=== PATIENT | female | born 1945 | race Caucasian/White ===

== ENCOUNTER 2025-02-24 21:44 | Observation (INO) | payer MEDICARE, SELFPAY ==
[2025-02-24 21:45] VITALS: BP 118/60; PULSE 75; RESP 16; TEMP 36.4; O2SAT 93; BMI 27.5
[2025-02-24 21:51] VITALS: BP 122/60; PULSE 71; RESP 21; TEMP 36.4; O2SAT 93
--- NOTE | 2025-02-24 22:20 | EKG12_ITS ---
Test Reason : DYSRHYTHMIA Blood Pressure : */* mmHG Vent. Rate : 64 BPM Atrial Rate : 64 BPM P-R Int : 214 ms QRS Dur : 110 ms QT Int : 432 ms P-R-T Axes : 42 -43 1 degrees QTcB Int : 445 ms Sinus rhythm with 1st degree A-V block Left axis deviation Moderate voltage criteria for LVH, may be normal variant ( R in aVL , Joshua product ) Septal infarct , age undetermined Abnormal ECG Confirmed by BALTAZAR COLLINS, LV ([id number]), editorial writer TERRY HEARD ([id number]) on 02/28/2025 6:32:13 AM Referred By: Confirmed By: LV LEDESMA MD
[2025-02-24 22:36] LABS: Hematocrit 34.2 % (37-47); Hemoglobin 11.4 g/dL (12.0-15.0); Immature Granulocytes Count 0.020 X10^3/uL (0.0-0.0); Mean Corp Hgb Conc 33.3 g/dL (32-36); Mean Corpuscular Volume 95.0 fL (81-99); Mean Platelet Vol. 9.2 fl (6.2-12.0); NRBC Flagged by Analyzer 0 % (0-5); Platelet Count 266 K/mm3 (150-450); RBC Distribution Width CV 13.6 % (11.6-14.6); RBC Distribution Width SD 47.2 fl (35.1-43.9); Red Blood Count 3.60 M/mm3 (4.2-5.4); White Blood Count 6.7 K/mm3 (4.4-11.0)
[2025-02-24 23:08] LABS: Anion Gap 10 (5-15); BUN 23 mg/dL (4-19); BUN/Creat Ratio 19.0 RATIO (10-20); Calcium,Total 9.7 mg/dL (7.6-11.0); Carbon Dioxide 24.6 mmol/L (21.0-32.0); Chloride 108 mmol/L (98-108); Estimated Creatinine Clearance 38.32 ml/min (50-250); Glucose 114 mg/dL (70-99); Potassium 4.3 mmol/L (3.3-5.1)
--- NOTE | 2025-02-24 23:19 | EDS_ITS ---
HPI History of Present Illness Chief Complaint: Weakness Narrative Narrative: Patient is a 79-year-old female presenting to the emergency department for generalized weakness. Patient has a past medical history of cervical spinal fusion and fairly recent diagnosis of a Parkinson-like disease that is effecting her gait and ability to walk secondary to weakness in her legs. She was at [facility] for about 7 days and they were unable to find a cause of her symptoms. Over the past few weeks she has had continued weakness in her legs with a shuffling like gait. She denies fever, chills, chest pain, SOB, abdominal pain, nausea, vomiting, diarrhea, dysuria, hematuria. Endorses chronic low back pain that is unchanged from baseline. Denies any recent falls or trauma to her head or back. Denies any numbness in her legs, saddle anesthesia, bowel or bladder incontinence or retention. States that she had an episode last night where she couldn't get out of bed to go the bathroom and urinated the bed. PFSH PFSH Medical History no medical history Home Medications ?Medication ?Instructions ?Recorded ?Last Taken ?Type duloxetine PO BID 02/24/25 Unknown Hist ory gabapentin .ROUTE QHS 02/24/25 Unknown History lorazepam .ROUTE QHS 02/24/25 Unknown History melatonin 5 mg capsule 5 mg PO QHS PRN sleep Unknown History Allergy/AdvReac Type Severity Reaction Status Date / Time No Known Allergies Allergy Verified 02/24/25 21:57 Surgical History (Updated 02/24/25 @ 22:05 by Josseline Villareal) H/O: hysterectomy S/P cervical spinal fusion Social History Smoking Status: Never smoker ROS ROS ED ROS Narrative see HPI EXAM Physical Exam Narrative Exam Narrative: Vital signs: Reviewed General: Alert and orientedx3. No acute distress. Nontoxic. HEENT: Head is normocephalic and atraumatic, sinuses nontender, pupils equal round and reactive. Nares are patent. Oropharynx and throat exams normal. Neck: Supple without lymphadenopathy nontender Cardiovascular: Regular rate and rhythm, no murmurs. No rubs or gallops. Normal S1 and S2 Respiratory: Clear to auscultation bilaterally. No wheezes, rales, rhonchi Abdominal: Soft and nontender. Normal bowel sounds. No guarding or rebound. Nonsurgical abdomen Extremities: 4/5 strength in right lower extremity. 3/5 strength in left lower extremity. Sensation intact in bilateral lower extremities. No tenderness. No bruising. Normal strength and sensation in bilateral upper extremities. Skin: No rash or redness. Neurological: Cranial nerves II through XII are grossly intact. Normal cerebellar function The rest of the physical exam is unremarkable Const Vital Signs: 02/24/25 21:45 02/24/25 21:51 02/24/25 21:59 Temperature 97.5 F L 97.5 F L Temperature Source Oral Oral Pulse Rate 75 71 Respiratory Rate 16 21 H Respiratory Effort Normal Respiratory Pattern Normal Blood Pressure 118/60 122/60 H Blood Pressure Mean 79 80 Pulse Ox 93 93 Oxygen Delivery Method Room Air Room Air 02/24/25 23:45 02/25/25 00:14 Temperature 98.4 F Temperature Source Temporal Pulse Rate 56 L 56 L Respiratory Rate 12 12 Respiratory Effort Respiratory Pattern Blood Pressure 130/68 H 130/68 H Blood Pressure Mean 88 88 Pulse Ox 96 9 Oxygen Delivery Method Room Air Room Air MDM MDM MDM Narrative Medical decision making narrative: Patient is a 79-year-old female presenting to the emergency department for generalized weakness and inability to walk with assistance at home. Patient was seen and examined. Vitals are stable. Patient resting in bed comfortably no acute distress. I explained to the at bedside this may be a progression of the Parkinson's-like disease. states that he is the sole software developer manager of the patient and he is unable to care for her if she is unable to ambulate. However will obtain basic blood work, chest x-ray, urinalysis to evaluate for any underlying electrolyte imbalance, pneumonia or UTI that is causing her worsening weakness. She has had no recent head trauma or falls I do not think she needs a CT of her brain. She had no new back pain and no midline tenderness on exam and no red flag back pain signs that were would require an MRI of her spine. CBC with no leukocytosis and anemia of 11.4. No baseline to compare to. BMP with mild BOO, again no baseline to compare to. Fluid bolus started. Urinalysis with no evidence of UTI. CXR reviewed by myself and shows no acute radiographic abnormalities. Radiology read in agreement. Viral swab negative. When I went to update the patient and is not at bedside. Patient will require admission for likely placement in a facility given 's inability to care for her at home given her worsening status. Patient will be admitted to the hospitalist, Dr. Muniz for further management. Clinical impression Failure to thrive Weakness History & Record Review Discussion w/independent historian: Patient and Significant other Lab Data Attestation: I reviewed the patient's lab results. Labs: Laboratory Results - last 24 hr 02/24/25 02/25/25 22:00 00:05 WBC 6.7 RBC 3.60 L Hgb 11.4 L Hct 34.2 L MCV 95.0 MCH 31.7 MCHC 33.3 RDW Std Deviation 47.2 H RDW Coeff of Dat 13.6 Plt Count 266 MPV 9.2 Immature Gran % (Auto) 0.300 Neut % (Auto) 64.3 Lymph % (Auto) 22.9 [place] % (Auto) 9.1 Eos % (Auto) 2.8 Baso % (Auto) 0.6 Absolute Neuts (auto) 4.3 Absolute Lymphs (auto) 1.54 Nucleated RBC % 0 Sodium 143 Potassium 4.3 Chloride 108 Carbon Dioxide 24.6 Anion Gap 10 BUN 23 H Creatinine 1.23 H Estim Creat Clear Calc 38.32 L Est GFR (MDRD) Non-Af 44 L BUN/Creatinine Ratio 19.0 Glucose 114 H Calcium 9.7 Urine Color Yellow Urine Clarity Clear Urine pH 6.0 Ur Specific [place] 1.020 Urine Protein 15 H Urine Glucose (UA) Normal Urine Ketones Negative Urine Occult Blood Negative Urine Nitrite Negative Urine Bilirubin Negative Urine Urobilinogen Normal Ur Leukocyte Esterase 25 H Radiography Chest X-Ray - ED: 2 View, Read by ED Physician, Normal, No Acute Disease and No Infiltrates Diagnostic Testing: Clinical Impression(s) from Imaging Studies Chest X-Ray 02/24/25 23:20 IMPRESSION: NO ACUTE FINDINGS. Reading Location: [facility][NOTE 3] Discharge Plan Triage Chief Complaint: Weakness ED Provider: Fina Wise Dx/Rx/DC Orders Prescriptions: No Action gabapentin .ROUTE QHS melatonin 5 mg capsule 5 mg PO QHS PRN (Reason: sleep) lorazepam .ROUTE QHS duloxetine PO BID Print Language: Portuguese
--- NOTE | 2025-02-24 23:20 | RAD_ITS ---
PROCEDURE: CHEST PA AND LATERAL 02/24/2025 REASON FOR EXAM: GENERALIZED WEAKNESS TECHNIQUE: Procedure Code: RADCXR Modality: DX Procedure: CHEST PA AND LATERAL COMPARISON: None. FINDINGS: LUNGS AND PLEURA: No focal airspace consolidation. No pleural effusion or pneumothorax. HEART AND MEDIASTINUM: The cardiac silhouette is mildly enlarged. The mediastinal contour is normal. BONES: No acute osseous abnormality. Partially imaged cervicothoracic spinal fusion hardware. RAD/Chest PA and Lateral IMPRESSION: NO ACUTE FINDINGS. Reading Location: [id number]
[2025-02-24 23:45] VITALS: BP 130/68; PULSE 56; RESP 12; O2SAT 96
[2025-02-25] VITALS (12 sets, daily range): BP systolic 130–159; BP diastolic 55–78; PULSE 54–79; RESP 11–18; TEMP 36.5–36.9; O2SAT 9–99; BMI 26.3
[2025-02-25] MEDS: 0.9% Normal Saline (1000mL) 1,000 ML 1000 ML IV (00:12)
[2025-02-25 00:35] LABS: Mucous, Urine 0 SEEN /hpf (<or=2+); Red Blood Cells-Urine 0 SEEN /hpf (0-5); Squamous Epithelial Cells - UA 0 SEEN /hpf (5-10)
[2025-02-25 00:40] LABS: Color, Urine Yellow (Yellow); Glucose, Dipstick Normal (Normal); Ketone-Dipstick Negative (Negative); Leukocyte Esterase-Dipstick 25 /ul (Negative); Nitrite-Dipstick Negative (Negative); Occult Blood-Urine Negative /ul (Negative); Protein-Dipstick 15 mg/dl (Negative); Specific Gravity, Urine 1.020 (1.002-1.030); Urine Bilirubin Dipstick Negative (Negative)
--- NOTE | 2025-02-25 01:08 | HP.PCM.HOS_ITS ---
HPI - General General Date of Admission: 02/25/25 Date of Service: 02/25/25 Chief Complaint: Debility, BL LE weakness. HPI Narrative The patient is an 79 y/o F w/ PMHx: RLS, Possible chronic normocytic anemia, Possible CKD stage III per GFR trending, HTN, Suspected Parkinson's disease, Anxiety and Depression/mood disorder, Chronic neuropathy, Possible Parkinson's disease who presents to [facility] ED on 02/25/2025 with history of generalized weakness with recent diagnosis of Parkinson's-like disease affecting her gait and ability to walk with significant worsening debility and weakness recently at [facility] reportedly for about 7 days unable to find any specific cause other than concern for Parkinson's disease discharged home eventually and over the past several weeks she has continued to be more weak with a shuffling like gait with unchanged chronic stable back pain contributing with no recent falls or trauma or worsened neuropathy but given debility and weakness prompted patient to present to the ED for skilled placement. Workup in the ED included T97.5, heart 75, BP 118/60, respiratory rate 16, 93% on room air with most recent repeat vitals T98.2, heart rate 60, BP 147/55, respiratory rate 12, 96% room air, CBC with WC 6.7, hemoglobin 0.4, MCV 95, platelet 266 without marked shift, BMP with BUN/creatinine 23/1.23, GFR 44, glucose 114, urinalysis not marked appearing, chest x-ray with no acute cardiopulmonary findings, rapid SARS COVID/influenza/RSV PCR negative. In the ED patient ministered 1 L normal saline. [facility] Medical History Parkinson disease Neuropathy HTN (hypertension) Anxiety and depression RLS (restless legs syndrome) Normocytic anemia Chronic kidney disease (CKD), stage 3 Medical History no medical history Home Medications ?Medication ?Instructions ?Recorded ?Last Taken ?Type duloxetine PO BID 02/24/25 Unknown Hist ory gabapentin .ROUTE QHS 02/24/25 Unknown History lorazepam .ROUTE QHS 02/24/25 Unknown History melatonin 5 mg capsule 5 mg PO QHS PRN sleep Unknown History Allergy/AdvReac Type Severity Reaction Status Date / Time No Known Allergies Allergy Verified 02/24/25 21:57 Family History Mother Heart disease Father , MVA No problems noted. Surgical History History of bladder surgery H/O: hysterectomy S/P cervical spinal fusion Social History household members: spouse Smoking Status: Never smoker alcohol intake: never substance use type: does not use ROS ROS Narrative Admission Review of Systems: CONSTITUTIONAL: No weight loss, fever, chills, + weakness or fatigue. HEENT: Eyes: No visual loss, blurred vision, double vision or yellow sclerae. Ears, Nose, Throat: No hearing loss, sneezing, congestion, runny nose or sore throat. SKIN: No rash or itching, lesions, wounds except + occasional stage ecchymoses, abrasion. CARDIOVASCULAR: No chest pain, chest pressure or chest discomfort, palpitations, edema, orthopnea, syncopal events. RESPIRATORY: No shortness of breath, cough or sputum, wheezing, hemoptysis. GASTROINTESTINAL: No anorexia, nausea, vomiting or diarrhea, abdominal pain, melena, BRBPR. GENITOURINARY: No dysuria, frequency, urgency or retention. NEUROLOGICAL: + General debility, lower extremity weakness, shuffling gait. No headache, dizziness, syncope, paralysis, ataxia, numbness or tingling in the extremities, focal weakness, change in bowel or bladder control, seizure. MUSCULOSKELETAL: + muscle, back pain, joint pain or stiffness. HEMATOLOGIC: + Chronic anemia, easy bleeding/bruising. LYMPHATICS: No enlarged nodes. No history of splenectomy. PSYCHIATRIC: + History of anxiety depression/mood disorder. ENDOCRINOLOGIC: No reports of sweating, cold or heat intolerance. No polyuria or polydipsia. ALLERGIES: No history of asthma, hives, eczema or rhinitis. Vital Signs Vital Signs Vital Signs: 02/24/25 21:45 02/24/25 21:51 02/24/25 21:59 Temperature 97.5 F L 97.5 F L Temperature Source Oral Oral Pulse Rate 75 71 Respiratory Rate 16 21 H Respiratory Effort Normal Respiratory Pattern Normal Blood Pressure 118/60 122/60 H Blood Pressure Mean 79 80 Pulse Ox 93 93 Oxygen Delivery Method Room Air Room Air 02/24/25 23:45 02/25/25 00:13 02/25/25 00:14 Temperature 98.4 F Temperature Source Temporal Pulse Rate 56 L 54 L 56 L Respiratory Rate 12 12 12 Respiratory Effort Respiratory Pattern Blood Pressure 130/68 H 130/68 H Blood Pressure Mean 88 88 Pulse Ox 96 96 9 Oxygen Delivery Method Room Air Room Air 02/25/25 00:15 02/25/25 00:30 02/25/25 00:45 Temperature Temperature Source Pulse Rate 54 L 64 64 Respiratory Rate 11 L 14 11 L Respiratory Effort Respiratory Pattern Blood Pressure 134/55 H 131/78 H 147/55 H Blood Pressure Mean 79 88 81 Pulse Ox 96 96 95 Oxygen Delivery Method 02/25/25 00:52 02/25/25 01:00 02/25/25 01:00 Temperature 98.2 F 97.9 F Temperature Source Temporal Pulse Rate 60 68 59 L Respiratory Rate 12 13 12 Respiratory Effort Respiratory Pattern Blood Pressure 147/55 H 147/55 H 139/68 H Blood Pressure Mean 85 85 85 Pulse Ox 96 96 97 Oxygen Delivery Method Room Air Weight Weight: 170 lb 10.205 oz Body Mass Index (BMI) 27.5 Physical Exam Narrative Physical Examination: General: Awakens to stimuli but very fatigued, not markedly alert, oriented to self, very fatigued, difficult to arouse, cooperative, seated upright in the ED bed in no apparent distress. Skin: Normal color, normal turgor, no icterus, no cyanosis except occasional staged ecchymoses, abrasion. HEENT: AT/NC, EOMI, PERRLA, mildly dry MM, no carotid bruits or JVD noted. Lungs: Diminished, greater bases, appropriate effort, no rales, ronchi or wheezing. Heart: Regular rate and rhythm; no gallop, rub audible. Abdomen: Soft, NTTP, ND, mildly hyperactive BS, no markedly appreciated HSM. Extremities: No cyanosis, no clubbing, no significant distal edema. Neurological: Awakens to stimuli but very fatigued, not markedly alert, oriented to self, very fatigued, difficult to arouse, cooperative, seated upright in the ED bed in no apparent distress, pupils equally reactive to light and accommodation, cranial nerves grossly normal but difficult assessment is very lethargic and fatigued, moving all 4 extremities, no focal deficits, strength severely globally decreased. Psychiatric: Affect appears flat, lethargic, fatigued, no acute evidence of depressive or anxiety feelings but does have underlying history. Results Lab / Micro Data 02/24/25 22:00 02/24/25 22:00 Labs: Laboratory Results - last 24 hr 02/24/25 22:00: WBC 6.7, RBC 3.60 L, Hgb 11.4 L, Hct 34.2 L, MCV 95.0, MCH 31.7, MCHC 33.3, RDW Std Deviation 47.2 H, RDW Coeff of Dat 13.6, Plt Count 266, MPV 9.2, Immature Gran % (Auto) 0.300, Neut % (Auto) 64.3, Lymph % (Auto) 22.9, [place] % (Auto) 9.1, Eos % (Auto) 2.8, Baso % (Auto) 0.6, Absolute Neuts (auto) 4.3, Absolute Lymphs (auto) 1.54, Nucleated RBC % 0, Sodium 143, Potassium 4.3, Chloride 108, Carbon Dioxide 24.6, Anion Gap 10, BUN 23 H, Creatinine 1.23 H, E stim Creat Clear Calc 38.32 L, Est GFR (MDRD) Non-Af 44 L, BUN/Creatinine Ratio 19.0, Glucose 114 H, Calcium 9.7 02/25/25 00:05: Urine Color Yellow, Urine Clarity Clear, Urine pH 6.0, Ur Specific [place] 1.020, Urine Protein 15 H, Urine Glucose (UA) Normal, Urine Ketones Negative, Urine Occult Blood Negative, Urine Nitrite Negative, Urine Bilirubin Negative, Urine Urobilinogen Normal, Ur Leukocyte Esterase 25 H, Urine RBC 0 SEEN, Urine WBC 0 SEEN, Ur Squamous Epith Cells 0 SEEN, Urine Bacteria 0 SEEN, Urine Mucus 0 SEEN Micro: Microbiology 02/24/25 22:30 Mucosa - Nose SARS-CoV-2, Influenza & RSV (PCR) - Final Imaging Radiology Impression Chest X-Ray 02/24/25 23:20 IMPRESSION: NO ACUTE FINDINGS. Reading Location: [facility] Assessment & Plan Assessment/Plan (1) Adult failure to thrive: PLAN: Plan The patient is an 79 y/o F w/ PMHx: RLS, Possible chronic normocytic anemia, Possible CKD stage III per GFR trending, HTN, Suspected Parkinson's disease, Anxiety and Depression/mood disorder, Chronic neuropathy, Possible Parkinson's disease who presents to [facility] ED on 02/25/2025 with history of generalized weakness with recent diagnosis of Parkinson's-like disease affecting her gait and ability to walk with significant worsening debility and weakness recently at [facility] reportedly for about 7 days unable to find any specific cause other than concern for Parkinson's disease discharged home eventually and over the past several weeks she has continued to be more weak with a shuffling like gait with unchanged chronic stable back pain contributing with no recent falls or trauma or worsened neuropathy but given debility and weakness prompted patient to present to the ED for skilled placement. #1. Debility, Weakness, recent concern Parkinson-like disease with worsening debility, Adult FTT: Will admit to [facility], maintain on fall precautions, from patient reportedly she was tried on Sinemet regimen but worsened significantly therefore this was discontinued, at this point patient is unable to be safely cared for at home with her spouse therefore will request PT/OT/case management consultation for discharge planning for skilled facility placement, has recently had a thorough evaluation at tertiary facility thus will defer any repeat evaluation at this time. #2. Possible Parkinson-like disease: Previous records with treatment with Sinemet regimen but these apparently worsened the patient symptoms, complicates presentation, maintain on fall precautions, PT/OT/CM consulted for discharge planning. Records requested from [facility]. #3. Hypertension: From previous records it appears that patient had been on losartan 25 mg once daily, filled does not appear to been performed recently that is clarified to be certain, will add if ongoing medication, PRN hydralazine. #4. Possible Chronic normocytic anemia: Admission hemoglobin 11.4, MCV 95, baseline hemoglobin unknown as no comparison labs, will repeat CBC in a.m. to further elucidate. #5. Possible Chronic Kidney Disease Stage III per GFR: Admission BUN/Cr 23/1.23, GFR 44, baseline renal function unknown, to further elucidate repeat BMP in AM. #6. Anxiety and depression/mood disorder: Will continue patient home duloxetine and mirtazapine regimen, attempting to clarify home medications, will continue if appropriate, hold sedating regimen given generalized weakness complaint. #7. Chronic neuropathy: Will very cautiously continue patient home gabapentin regimen, monitor for sedation, hold if needed as again could be contributing to generalized weakness complaint. #8. RLS: Previously remotely had a fill for pramipexole regimen, does not currently appear to be ongoing, clarified to be certain will add if appropriate. #9. DVT prophylaxis: Lovenox. #10. CODE status: Patient HCPOA is her and living will is in place. Discussed CODE status at length including difference between FULL code, DNR-CCA and DNR-CC status. Following discussions about the differences in these status, requested DNR-CCA, no intubation. Advanced Care Planning Face to Face Time: 16 minutes. Charges/Coding Visit Charges Inpatient E&M: 63794 Init Hosp L2 Procedures Hospitalists Procedures: 65093 Advncd Care Plan 30 Min
[2025-02-25 01:34] LABS: Magnesium 2.1 mg/dL (1.5-2.2)
[2025-02-25] MEDS: 0.9% Normal Saline (1000mL) 1,000 ML 75 ML IV (03:21)
[2025-02-25] MEDS: 0.9% Saline Lock 10 ML Syringe IV (03:21)
[2025-02-25 08:22] LABS: Hematocrit 31.5 % (37-47); Hemoglobin 10.1 g/dL (12.0-15.0); Immature Granulocytes Count 0.010 X10^3/uL (0.0-0.0); Mean Corp Hgb Conc 32.1 g/dL (32-36); Mean Corpuscular Volume 96.3 fL (81-99); Mean Platelet Vol. 9.3 fl (6.2-12.0); NRBC Flagged by Analyzer 0 % (0-5); Platelet Count 242 K/mm3 (150-450); RBC Distribution Width CV 13.6 % (11.6-14.6); RBC Distribution Width SD 47.6 fl (35.1-43.9); Red Blood Count 3.27 M/mm3 (4.2-5.4); White Blood Count 4.5 K/mm3 (4.4-11.0)
[2025-02-25 09:07] LABS: AST(SGOT) 26 U/L (<=31); Alanine Aminotransfer ALT/SGPT 8 U/L (<=34); Albumin, Serum 3.4 g/dL (3.4-4.8); Alkaline Phosphatase 81 U/L (35-104); Anion Gap 8 (5-15); BUN 22 mg/dL (4-19); BUN/Creat Ratio 23.2 RATIO (10-20); Calcium,Total 9.0 mg/dL (7.6-11.0); Carbon Dioxide 23.8 mmol/L (21.0-32.0); Chloride 111 mmol/L (98-108); Estimated Creatinine Clearance 48.21 ml/min (50-250); Globulin 1.8 g/dL (2.2-4.2); Glucose 95 mg/dL (70-99); Potassium 4.0 mmol/L (3.3-5.1)
--- NOTE | 2025-02-25 13:40 | CASEMGMT ---
MALINA VILLEGAS Assessment Face to Face with patient for initial transition planning/care coordination assessment. RN BAKARI introduced self and role at [facility], pt voices understanding. Pt is A&Ox4 and is resting comfortably in bed and is calm. Pt's GD at the bedside. Care providers, pharmacy, and demographics verified. Admitting dx: Debility, Adult FTT LACE Strata: 1 PCP: Leonarda Mistry Specialists: Tobin (Nehpro), Fabby (Neurology), Jessica (Neuro) Preferred Pharmacy: [facility] Insurance: O [facility] Prescription Benefit: Yes LNOK: Allan (H) Living Arrangements: Pt lives with her in a single story home with a ramp to enter ADLs/IADLs: Pt reports that she is indep at baseline. However, current 6-Click score is 14 and PT is pending Transportation: DME: Cane, Rollator, FWW, walk in shower with shower chair and grab bars HHC/SNF: [facility] and hx at [facility] in [place]. Pt states that she is active with [facility] in [place]. Pt?s goal: Return to PLOF Plan: TBD. Anticipate SNF vs HHC vs home with [facility]. Pt states that she is unsure of what she will need or want at the time of DC. Encouraged the pt to work with PT/OT here to help determine what she will best qualify for. Pt states understanding. Pt states that she would be receptive to reviewing a list of local in-network SNFs if SNF is warranted. DPA notified. CM to follow therapy evals and f/u with the pt. Report given to MS3 MALINA VILLEGAS. Walker Canchola RN, CM
--- NOTE | 2025-02-25 16:24 | CASEMGMT ---
Discharge Planning A list of?SNF providers including quality and resource use data and consistent with the patient's preferred geographic region, medical needs, and insurance network was created in [employer] Guide.? This list was provided to the RN BAKARI. Liliya Barrow, Discharge Planning Asst.
--- NOTE | 2025-02-25 16:40 | CASEMGMT ---
MALINA VILLEGAS into pt room, pt with at bedside. Provided pt with a SNF list that dc kitchen assistant created in case pt may need. Pt is aware that MALINA VILLEGAS will f/u with her tomorrow after therapy and if she needs a SNF will request her top 3 choices. Pt states that pt cannot even walk now. He is aware they can review list and discuss and MALINA VILLEGAS to check back. Pt and deny any further questions.
[2025-02-25] MEDS: Glycerin/Hypromellose/PEG400 15 ml Bottle 1 DRP EACH EYE ×2 (17:10→21:42)
--- NOTE | 2025-02-25 17:22 | PCM.PN.BLA ---
Progress Note [facility]. Still with debility and weakness and concerns for possible Parkinson-like disease.
--- NOTE | 2025-02-26 00:03 | PCM.HOSP.N ---
Hospitalist Note Pt c/o generalized pain, requests oxy as taken at home. In considering her being encephalopathic on admission, reviewed Rx fill history. Percocet fill in October and oxy fill in August of this year, nothing recent. I ordered tramadol 50mg PO x1 now.
[2025-02-26] MEDS: MELATONIN 10 MG TABLET 5 MG PO ×2 (01:19→21:11)
[2025-02-26 02:45] VITALS: BP 145/52; PULSE 69; RESP 18; TEMP 36.6; O2SAT 94
[2025-02-26 06:00] VITALS: BMI 26.2
[2025-02-26 06:35] LABS: Hematocrit 32.4 % (37-47); Hemoglobin 10.3 g/dL (12.0-15.0); Immature Granulocytes Count 0.010 X10^3/uL (0.0-0.0); Mean Corp Hgb Conc 31.8 g/dL (32-36); Mean Corpuscular Volume 97.3 fL (81-99); Mean Platelet Vol. 9.7 fl (6.2-12.0); NRBC Flagged by Analyzer 0 % (0-5); Platelet Count 236 K/mm3 (150-450); RBC Distribution Width CV 13.6 % (11.6-14.6); RBC Distribution Width SD 48.1 fl (35.1-43.9); Red Blood Count 3.33 M/mm3 (4.2-5.4); White Blood Count 5.5 K/mm3 (4.4-11.0)
[2025-02-26 07:03] LABS: Anion Gap 9 (5-15); BUN 21 mg/dL (4-19); BUN/Creat Ratio 19.6 RATIO (10-20); Calcium,Total 8.9 mg/dL (7.6-11.0); Carbon Dioxide 22.8 mmol/L (21.0-32.0); Chloride 110 mmol/L (98-108); Estimated Creatinine Clearance 42.31 ml/min (50-250); Glucose 93 mg/dL (70-99); Potassium 4.4 mmol/L (3.3-5.1)
[2025-02-26 07:51] VITALS: O2SAT 95
--- NOTE | 2025-02-26 08:14 | PN.HOSP_ITS ---
Reason for Visit Chief Complaint: Debility, BL LE weakness. Objective Data Objective Data Vital Signs: Vital Signs Temp Pulse Resp BP Pulse Ox O2 Del Method 97.9 F 69 18 145/52 H 94 Room Air 02/26/25 02:45 02/26/25 02:45 02/26/25 02:45 02/26/25 02:45 02/26/25 02:45 02/26/25 02:45 Oxygen Delivery Method Room Air Weight: 162 lb 11.218 oz Body Mass Index (BMI) 26.2 Intake & Output: Intake and Output for Last 24 Hours 02/24/25 02/25/25 02/26/25 23:59 23:59 23:59 Intake Total 2340 / 2340 Output Total 450 / 1050 1000 / 1000 Balance 1890 / 1290 -1000 / -1000 Medical Nutrition Assessment Dietitian: Malnutrition Criteria Met Start: 02/25/25 16:22 Freq: Status: Active Protocol: Document 02/25/25 16:26 RMA (Rec: 02/25/25 16:26 RMA [id number]) Nutrition Malnutrition Evidence of Yes Malnutrition Exists Malnutrition (severe Chronic ): Evidenced By Suboptimal Energy Intake (Severe),Weight Loss (Severe) Clinical Problem Chronic Disease or Condition Related Malnutrition Etiology Severe protein-calorie malnutrition in the context of chronic disease and debility related to inadequate oral intake~ Signs/Symptoms as evidenced by PO meeting less than 50-75% estimated nutrition needs x 3-6 months and unintentional weight loss ~14% x past 3-6 months Status Active Problem Recommendation Dietitian Will liberalize diet to Regular given signs/symptoms of Recommendations/ malnutrition. Changes Will add 240mL ensure plus HP with breakfast. Will add magic cup dessert with lunch and dinner tray. Trend weight closely and adjust ONS to optimize oral intake. Lab / Micro Data 02/26/25 05:46 02/26/25 05:46 Labs: Laboratory Results - last 24 hr 02/25/25 07:42: WBC 4.5, RBC 3.27 L, Hgb 10.1 L, Hct 31.5 L, MCV 96.3, MCH 30.9, MCHC 32.1, RDW Std Deviation 47.6 H, RDW Coeff of Dat 13.6, Plt Count 242, MPV 9.3, Immature Gran % (Auto) 0.200, Neut % (Auto) 49.5, Lymph % (Auto) 35.3, [place] % (Auto) 10.4 H, Eos % (Auto) 4.2, Baso % (Auto) 0.4, Absolute Neuts (auto) 2.2, Absolute Lymphs (auto) 1.60, Nucleated RBC % 0, Sodium 142, Potassium 4.0, C hloride 111 H, Carbon Dioxide 23.8, Anion Gap 8, BUN 22 H, Creatinine 0.96, E stim Creat Clear Calc 48.21 L, Est GFR (MDRD) Non-Af 60, BUN/Creatinine Ratio 23.2 H, Glucose 95, Calcium 9.0, Total Bilirubin 0.84, AST 26, ALT 8, Alkaline Phosphatase 81, Total Protein 5.1 L, Albumin 3.4, Globulin 1.8 L, Albumin/Globulin Ratio 1.9 02/26/25 05:46: WBC 5.5, RBC 3.33 L, Hgb 10.3 L, Hct 32.4 L, MCV 97.3, MCH 30.9, MCHC 31.8 L, RDW Std Deviation 48.1 H, RDW Coeff of Dat 13.6, Plt Count 236, MPV 9.7, Immature Gran % (Auto) 0.200, Neut % (Auto) 48.5, Lymph % (Auto) 34.6, [place] % (Auto) 10.7 H, Eos % (Auto) 5.6 H, Baso % (Auto) 0.4, Absolute Neuts (auto) 2.7, Absolute Lymphs (auto) 1.90, Nucleated RBC % 0, Sodium 142, Potassium 4.4, Chloride 110 H, Carbon Dioxide 22.8, Anion Gap 9, BUN 21 H, Creatinine 1.09, E stim Creat Clear Calc 42.31 L, Est GFR (MDRD) Non-Af 51 L, BUN/Creatinine Ratio 19.6, Glucose 93, Calcium 8.9 Micro: Microbiology 02/24/25 22:30 Mucosa - Nose SARS-CoV-2, Influenza & RSV (PCR) - Final Physical Exam Narrative Seen and examined Patient admitted with movement disorder, disequilibrium, short shuffling gait and near fall situation. Her symptoms got worse with Sinemet. Physical exam General: Alert, Oriented x3, Cooperative. BMI 26.3 kg/m?. HEENT: Atraumatic, PERRLA, EOMI, Normocephalic. Oral: No Gingival or Mucosal Lesions/ Ulcerations Neck: Supple, No JVD, Negative Carotid Bruits Chest wall/Lungs: Air entry diminished in bilateral lung bases. No crepitation/rhonchi Cardiovascular: Regular rate and rhythm, Normal S1,S2, No M/G/R Abdomen: Bowel Sounds Present, Soft, Non Tender, Non-Distended : No dysuria. No renal angle tenderness. No suprapubic tenderness. Extremities: No edema, Capillary Refill Less than 3 Seconds Skin: No rashes, No breakdown Musculoskeletal: Left knee and hip 3/5, right knee and hip 4+/5. Bilateral degenerative knee arthritis. Neurological: Cranial nerves II-XII grossly intact, DTR 2+/4. No acute focal neurological deficit. Psych/Mental Status: Flat affect Assessment & Plan Assessment/Plan (1) Adult failure to thrive: PLAN: Plan The patient is an 79 y/o F is being admitted for generalized weakness with recent diagnosis of Parkinson-like disease therefore possible progression of her Parkinson disease with weakness of her legs, shuffling gait and not able to walk. #1. Debility, Weakness, recent concern Parkinson-like disease with worsening debility, Adult FTT: Patient admitted on MedSurg floor. As per , Sinemet worsened her symptoms and therefore was discontinued. PT and OT ordered. Case management consultation for skilled facility placement #2. 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 She states he saw Dr. Rdz and Dr. Andrea Lopez neurologist in the [facility]. #3. Hypertension: Patient was on losartan. #4. Possible Chronic normocytic anemia: Admission hemoglobin 11.4, MCV 95, repeat H&H 10.3/32.4%. Platelet count normal. #5. Chronic Kidney Disease stage A: Admission BUN/Cr 23/1.23, GFR 44, baseline not known. Repeat BUN/creatinine 221/1.09. #6. Anxiety and depression/mood disorder: continue patient home duloxetine and mirtazapine regimen #7. Chronic neuropathy: continue patient home gabapentin regimen #8. RLS: Was on pramipexole in the past. #9. DVT prophylaxis: Lovenox. #10. CODE status: Patient HCPOA is her and living will is in place. Discussed CODE status at length including difference between FULL code, DNR-CCA and DNR-CC status. Following discussions about the differences in these status, requested DNR-CCA, no intubation. Charges/Coding Visit Charges Inpatient E&M: 36211 Subs Hosp L2
[2025-02-26 08:33] VITALS: BP 124/54; PULSE 65; RESP 15; TEMP 36.6; O2SAT 95
[2025-02-26] MEDS: Glycerin/Hypromellose/PEG400 15 ml Bottle 1 DRP EACH EYE (08:42)
[2025-02-26 15:25] VITALS: BP 106/45; PULSE 78; RESP 16; TEMP 36.6; O2SAT 94
--- NOTE | 2025-02-26 15:42 | CASEMGMT ---
This health science writer has collaborated with therapy who states that they still have not been able to work with the pt today due to multiple evals. CM to f/u on Friday once therapy evals are in to assist with SNF DC planning.
[2025-02-26 20:06] VITALS: O2SAT 96
[2025-02-26 20:09] VITALS: BP 126/55; PULSE 70; RESP 16; TEMP 36.7; O2SAT 96
[2025-02-27] VITALS (7 sets, daily range): BP systolic 101–142; BP diastolic 47–62; PULSE 60–78; RESP 16–18; TEMP 36.4–37; O2SAT 92–95; BMI 26.2
--- NOTE | 2025-02-27 11:24 | PCM.PN.HOSP ---
Reason for Visit Chief Complaint: Debility, BL LE weakness. Objective Data Objective Data Vital Signs: Vital Signs Temp Pulse Resp BP Pulse Ox O2 Del Method 98.2 F 68 16 142/56 H 93 Room Air 02/27/25 07:35 02/27/25 07:35 02/27/25 07:35 02/27/25 07:35 02/27/25 08:05 02/27/25 08:05 Oxygen Delivery Method Room Air Weight: 162 lb 4.163 oz Body Mass Index (BMI) 26.2 Intake & Output: Intake and Output for Last 24 Hours 02/25/25 02/26/25 02/27/25 23:59 23:59 23:59 Intake Total 2340 / 2340 500 / 700 200 / 200 Output Total 450 / 1050 1500 / 1750 250 / 250 Balance 1890 / 1290 -1000 / -1050 -50 / -50 Medical Nutrition Assessment Dietitian: Malnutrition Criteria Met Start: 02/25/25 16:22 Freq: Status: Active Protocol: Document 02/25/25 16:26 RMA (Rec: 02/25/25 16:26 RMA [id number]) Nutrition Malnutrition Evidence of Yes Malnutrition Exists Malnutrition (severe Chronic ): Evidenced By Suboptimal Energy Intake (Severe),Weight Loss (Severe) Clinical Problem Chronic Disease or Condition Related Malnutrition Etiology Severe protein-calorie malnutrition in the context of chronic disease and debility related to inadequate oral intake~ Signs/Symptoms as evidenced by PO meeting less than 50-75% estimated nutrition needs x 3-6 months and unintentional weight loss ~14% x past 3-6 months Status Active Problem Recommendation Dietitian Will liberalize diet to Regular given signs/symptoms of Recommendations/ malnutrition. Changes Will add 240mL ensure plus HP with breakfast. Will add magic cup dessert with lunch and dinner tray. Trend weight closely and adjust ONS to optimize oral intake. Lab / Micro Data 02/26/25 05:46 02/26/25 05:46 Micro: Microbiology 02/24/25 22:30 Mucosa - Nose SARS-CoV-2, Influenza & RSV (PCR) - Final Physical Exam Narrative Seen and examined Patient admitted with movement disorder, disequilibrium, short shuffling gait and near fall situation. Her symptoms got worse with Sinemet. Patient denies any improvement compared to yesterday. Did not had a BM since Friday. Physical exam General: Alert, Oriented x3, Cooperative. BMI 26.3 kg/m?. Fatigue. HEENT: Atraumatic, PERRLA, EOMI, Normocephalic. Oral: No Gingival or Mucosal Lesions/ Ulcerations Neck: Supple, No JVD, Negative Carotid Bruits Chest wall/Lungs: Air entry diminished in bilateral lung bases. No crepitation/rhonchi Cardiovascular: Regular rate and rhythm, Normal S1,S2, No M/G/R Abdomen: Bowel Sounds Present, Soft, Non Tender, Non-Distended : No dysuria. No renal angle tenderness. No suprapubic tenderness. Extremities: No edema, Capillary Refill Less than 3 Seconds Skin: No rashes, No breakdown Musculoskeletal: Left knee and hip 3/5, right knee and hip 4/5. Bilateral degenerative knee arthritis. Neurological: Cranial nerves II-XII grossly intact, DTR 2+/4. No acute focal neurological deficit. Psych/Mental Status: Flat affect Assessment & Plan Assessment/Plan (1) Adult failure to thrive: PLAN: Plan The patient is an 79 y/o F is being admitted for generalized weakness with recent diagnosis of Parkinson-like disease therefore possible progression of her Parkinson disease with weakness of her legs, shuffling gait and not able to walk. #1. Debility, Weakness, recent concern Parkinson-like disease with worsening debility, Adult FTT: Patient admitted on MedSurg floor. As per , Sinemet worsened her symptoms and therefore was discontinued. PT and OT ordered. Case management consultation for skilled facility placement 02/27: Continue PT and OT and pain control. Stool softener including Dulcolax oral ordered as patient did not had BM. M #2. Possible Parkinson-like disease: Patient had thorough workup for Parkinson like disease in [facility].Records requested from [facility]. She states he saw Dr. Rdz and Dr. Andrea Lopez neurologist in the [facility]. 02/27: Neuro consult ordered. #3. Hypertension: Patient was on losartan. #4. Possible Chronic normocytic anemia: Admission hemoglobin 11.4, MCV 95, repeat H&H 10.3/32.4%. Platelet count normal. #5. Chronic Kidney Disease stage A: Admission BUN/Cr 23/1.23, GFR 44, baseline not known. Repeat BUN/creatinine 221/1.09. #6. Anxiety and depression/mood disorder: continue patient home duloxetine and mirtazapine regimen #7. Chronic neuropathy: continue patient home gabapentin regimen #8. RLS: Was on pramipexole in the past. #9. DVT prophylaxis: Lovenox. #10. CODE status: Patient HCPOA is her and living will is in place. Discussed CODE status at length including difference between FULL code, DNR-CCA and DNR-CC status. Following discussions about the differences in these status, requested DNR-CCA, no intubation. Charges/Coding Visit Charges Inpatient E&M: 02660 Subs Hosp L2
[2025-02-27] MEDS: Polyethylene Glycol 3350 17 GM PACKET PO (12:09)
[2025-02-27] MEDS: Senna/Docusate Sodium 1 Tablet 2 TABLET PO (22:16)
[2025-02-27] MEDS: Glycerin/Hypromellose/PEG400 15 ml Bottle 1 DRP EACH EYE (22:16)
[2025-02-27] MEDS: MELATONIN 10 MG TABLET 5 MG PO (22:16)
[2025-02-28 03:10] VITALS: BP 145/56; PULSE 66; RESP 18; TEMP 36.7; O2SAT 93
[2025-02-28 06:00] VITALS: BMI 28.0
[2025-02-28 08:42] VITALS: BP 132/49; PULSE 64; RESP 16; TEMP 36.6; O2SAT 97
--- NOTE | 2025-02-28 10:18 | NEURO.CONS ---
Assessment and Plan: Neuro Assessment/Plan JIM MAGAÑA is a 79 F with a past medical history of parkinsonism, cervical myelopathy, being evaluated by Teleneurology for falls and worsening parkinsonism symptoms. 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 There is suspicion for a parkinsonism on history and exam is consistent with this, however the rigidity and bradykinesia seem out of proportion to symptoms. Would like to assess gait but very difficult to evaluate and there is weakness in the LE L>R (and her bradykinesia is also worse L>R) but appears diffusely with weakness. Ddx for falls and weakness include worsening parkinsonism, worsening neuropathy, cannot rule out a myeloneuropathy. 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 HPI Consult Data Date of Consult: 02/28/25 HPI Narrative HPI Narrative: The patient is an 79 y/o F is being admitted for generalized weakness with recent diagnosis of Parkinson-like disease therefore possible progression of her Parkinson disease with weakness of her legs, shuffling gait and not able to walk. From the notes: Debility, Weakness, recent concern Parkinson-like disease with worsening debility, Adult FTT: Patient admitted on MedSurg floor. As per , Sinemet worsened her symptoms and therefore was discontinued. PT and OT ordered. Case management consultation for skilled facility placement 02/27: Continue PT and OT and pain control. Stool softener including Dulcolax oral ordered as patient did not had BM. M Possible Parkinson-like disease: Patient had thorough workup for Parkinson like disease in [facility].Records requested from [facility]. She states he saw Dr. Rdz and Dr. Andrea Lopez neurologist in the [facility]. Neurology History Patient was brought to the hospital for recurrent falls. Patient had had a JOSE scan and was diagnosed with a parkinsonism and went to see a PD specialist who states that there was very little that could be done. She did try sinemet outside the hospital because she was having more falls on the sinemet. Was on sinemet for a week at home and was having more falls in October until she was in hospital and taken off the sinemet. In November had recovered and she was getting better and had no falls in Nov/Dec but the walking was unsteady and having lot of falls. Was walking maybe 25 ft. Eating has been difficult d/t loss of appetite which started Nov and lost 30 lbs. In Jan was eating a small amount of breakfast (usually toast) and then eat a small amount of her dinner. Was having 1 BM a week and been severely constipated. Had a cervical fusion in July 2023 for pain and cervical stenosis. Pt states she was having falls before the surgery and weakness in the arms and legs. For a little while things got better - then the weakness got better, falls stopped, and the pain improved. Then there was revision of the hardware in July 2024 - then things got worse from there wrt falls she states but had been falling in April 2024 as well. Last time they did a MRI of the spine was in 2024. All this was done at [facility]. About 6 months ago her voice became affected and will be intermittent. She lost smell after she got covid What brought her to the neurologist for diagnosis was sinemet and would get very weak and dizzy and would fall. Exam -? General: Laying comfortably in bed; in no acute distress. -? HENT: Normal oropharynx and mucosa. Normal external appearance of ears and nose. Exophthalmos. -? Neck: Supple, no pain or tenderness -? CV:? No peripheral edema. -? Pulmonary:? Normal respiratory effort. -? Ext: No cyanosis, edema, or deformity -? Skin: No rash. Normal palpation of skin.? -? Musculoskeletal: full range of motion; no joint tenderness. Normal digits and nails by inspection. No clubbing. -? NEURO: -? Mental Status: The patient was alert and oriented to time, place, and person. Normal recent/remote memory, concentration, and general fund of knowledge. -? Language: speech is hoarse.? Naming, repetition, fluency, and comprehension intact. -? Cranial Nerves: PERRL 2mm/brisk. EOMI, visual chau full, L eye ptosis, no facial asymmetry, facial sensation intact, hearing intact, tongue midline, no evidence of atrophy or fibrillations. -? Motor: RUE pronation and drift -? Detailed strength exam as performed by the nurse/MARTIN and witnessed by the physician: R L SA 4 4 EE 4 4 EF 5 5 WE 4 4- WF In Flight Refueling System Repairer 5 5 HF 4 2 KE 4- 3 KF 4 3 DF 3 3 PF Of note, no noted bradykinesia or tremor or other adventitial movements On UMANG: diminishe dbilaterally L>R Rigidity noted on the L, none on the R in the UE and the LE -? Detailed reflex exam as performed by the nurse/MARTIN and witnessed by the physician: R L Biceps Patellar 1 2 Ankle Babinski mute down -? Sensation- diminished on the LUE and LLE -? Coordination: No dysmetria on [id number] b/l, HTS not tested d/t weakness -? Gait- deferred, patient uable to stand reliably [facility] Medical History Parkinson disease Neuropathy HTN (hypertension) Anxiety and depression RLS (restless legs syndrome) Normocytic anemia Chronic kidney disease (CKD), stage 3 Medical History no medical history Home Medications ?Medication ?Instructions ?Recorded ?Last Taken ?Type melatonin 5 mg capsule 5 mg PO QHS PRN sleep 02/24/25 Unknown History baclofen 10 mg tablet 10 mg PO BID 02/25/25 Unknown History cyclobenzaprine 10 mg tablet 10 mg PO TID PRN PRN muscle spasm 02/25/25 Unknown History duloxetine 30 mg capsule,delayed 30 mg PO BID 02/25/25 Unknown History release gabapentin 300 mg capsule 300 mg PO DAILY 02/25/25 Unknown History mirtazapine 7.5 mg tablet 7.5 mg PO QHS 02/25/25 Unknown History trazodone 100 mg tablet 100 mg PO QHS 02/25/25 Unknown History Allergy/AdvReac Type Severity Reaction Status Date / Time No Known Allergies Allergy Verified 02/24/25 21:57 Family History Mother Heart disease Father , MVA No problems noted. Surgical History History of bladder surgery H/O: hysterectomy S/P cervical spinal fusion Social History household members: spouse Smoking Status: Never smoker alcohol intake: never substance use type: does not use Vital Signs Vital Signs Vital Signs: 02/27/25 13:37 02/27/25 13:40 02/27/25 17:38 Temperature 98.2 F 98 F Temperature Source Oral Oral Pulse Rate 78 72 Pulse Strength Respiratory Rate 16 16 Respiratory Effort Normal Non-Labored Blood Pressure 110/62 101/53 L Blood Pressure Mean 78 69 Blood Pressure Source Monitor Monitor Blood Pressure Position Sitting Semi-Fowlers Blood Pressure Location Left Arm Left Arm Pulse Ox 95 95 Oxygen Delivery Method Room Air Room Air 02/27/25 17:40 02/27/25 22:00 02/27/25 22:02 Temperature 97.6 F L Temperature Source Oral Pulse Rate 71 Pulse Strength Normal (2+) Respiratory Rate 18 Respiratory Effort Normal Non-Labored Blood Pressure 122/48 H Blood Pressure Mean 72 Blood Pressure Source Monitor Blood Pressure Position Semi-Fowlers Blood Pressure Location Right Arm Pulse Ox 95 Oxygen Delivery Method Room Air 02/27/25 22:07 02/28/25 03:10 02/28/25 08:42 Temperature 98.1 F 97.8 F Temperature Source Oral Axillary Pulse Rate 66 64 Pulse Strength Respiratory Rate 18 16 Respiratory Effort Normal Non-Labored Blood Pressure 145/56 H 132/49 H Blood Pressure Mean 85 76 Blood Pressure Source Monitor Monitor Blood Pressure Position Supine Sitting Blood Pressure Location Right Arm Right Arm Pulse Ox 93 97 Oxygen Delivery Method Room Air Room Air Room Air 02/28/25 09:00 Temperature Temperature Source Pulse Rate Pulse Strength Respiratory Rate Respiratory Effort Blood Pressure Blood Pressure Mean Blood Pressure Source Blood Pressure Position Blood Pressure Location Pulse Ox Oxygen Delivery Method Room Air Weight Weight: 79.016 kg Body Mass Index (BMI) 28.0 EEG Results Procedure Details EEG Procedure Details: JIM MAGAÑA is a 79 year old F with a past medical history of , who presents for evaluation of Electroencephalogram on DATE at TIME Medical Records Data Medical Nutrition Assessment Dietitian: Malnutrition Criteria Met Start: 02/25/25 16:22 Freq: Status: Active Protocol: Document 02/25/25 16:26 RMA (Rec: 02/25/25 16:26 RMA [id number]) Nutrition Malnutrition Evidence of Yes Malnutrition Exists Malnutrition (severe Chronic ): Evidenced By Suboptimal Energy Intake (Severe),Weight Loss (Severe) Clinical Problem Chronic Disease or Condition Related Malnutrition Etiology Severe protein-calorie malnutrition in the context of chronic disease and debility related to inadequate oral intake~ Signs/Symptoms as evidenced by PO meeting less than 50-75% estimated nutrition needs x 3-6 months and unintentional weight loss ~14% x past 3-6 months Status Active Problem Recommendation Dietitian Will liberalize diet to Regular given signs/symptoms of Recommendations/ malnutrition. Changes Will add 240mL ensure plus HP with breakfast. Will add magic cup dessert with lunch and dinner tray. Trend weight closely and adjust ONS to optimize oral intake. Lab / Micro Data 02/26/25 05:46 02/26/25 05:46 Active Medications Active Medications Active Medications: Current Medications Generic Name Dose Route Start Last Admin Trade Name Freq PRN Reason Stop Dose Admin Acetaminophen 650 mg 02/25/25 02:49 02/28/25 09:37 Acetaminophen 325 Mg Tablet PO 650 mg Q4H PRN PRN Administration Fever, pain 1-10 Baclofen 10 mg 02/25/25 22:00 02/28/25 08:48 Baclofen 10 Mg Tablet PO 10 mg BID JENNIFER Administration Calamine/Phenol 1 applic 02/25/25 10:00 02/28/25 09:55 Menthol/Lanolin/Calamine/Znox 113 Gm Tube TOPICAL 1 applic 4X/DAY JENNIFER Administration Protocol Duloxetine HCl 30 mg 02/25/25 22:00 02/28/25 08:49 Duloxetine Hcl 30 Mg Capsule PO 30 mg BID JENNIFER Administration Enoxaparin Sodium 40 mg 02/25/25 10:00 02/28/25 08:48 Enoxaparin 40 Mg/0.4 Ml Syringe SC 40 mg DAILY JENNIFER Administration Gabapentin 300 mg 02/28/25 22:00 Gabapentin 300 Mg Capsule PO QHS JENNIFER Glycerin/Hypromellose/Polyethylene 1 drp 02/25/25 16:07 02/27/25 22:16 Glycerin/Hypromellose/[id number] 15 Ml Bottle EACH EYE 1 drp Q1H PRN Administration DRY EYES Hydralazine HCl 10 mg 02/25/25 02:49 Hydralazine 20 Mg/Ml Vial IV Q4H PRN PRN SBP > 160 Protocol Sodium Chloride 250 mls @ 15 mls/hr 02/25/25 02:29 IV .[id number] PRN Saline Flush Sodium Chloride 250 mls @ 15 mls/hr 02/25/25 02:29 IV .[id number] PRN Additional IVPB Infusion Melatonin 5 mg 02/25/25 02:57 02/27/25 22:16 Melatonin 10 Mg Tablet PO 5 mg QHS PRN PRN Administration sleep Mirtazapine 7.5 mg 02/25/25 22:00 02/27/25 22:15 Mirtazapine 15 Mg Tablet PO 7.5 mg QHS JENNIFER Administration Ondansetron HCl 4 mg 02/25/25 02:49 Ondansetron 4 Mg/2 Ml Vial IV Q8H PRN PRN NAUSEA/VOMITING Polyethylene Glycol 17 gm 02/27/25 11:30 02/28/25 08:49 Polyethylene Glycol 3350 17 Gm Packet PO Not Given DAILY JENNIFER Senna/Docusate Sodium 2 tablet 02/27/25 22:00 02/28/25 08:50 Senna/Docusate Sodium 1 Tablet PO Not Given BID JENNIFER Sodium Chloride 10 - 40 ml 02/25/25 02:29 02/25/25 03:21 0.9% Saline Lock 10 Ml Syringe IV 10 ml UD PRN Administration SALINE FLUSH Trazodone HCl 100 mg 02/25/25 22:00 02/27/25 22:15 Trazodone 100 Mg Tablet PO 100 mg QHS JENNIFER Administration
--- NOTE | 2025-02-28 11:52 | CASEMGMT ---
Met with patient to review GARCIA form. GARCIA form and its content were verbally explained and patient?s questions were answered to the best of my ability. Patient voiced understanding and signed GARCIA form. Patient provided a copy of signed GARCIA form and original placed in patient?s chart. Patient had no further questions or concerns. This freelance copywriter also followed up on DC planning. Pt states that she is agreeable to SNF placement and that her and her were able to review the list and prefers 1.) [facility] and 2.) [facility]. Pt does not have a 3rd FOC at this time. Pt denies further questions or concerns. Updated MS3 RN CM.
--- NOTE | 2025-02-28 12:02 | CASEMGMT ---
Addendum entered by Uyen Gonsalves 02/28/25 15:56: Pt accepted at [facility]. RN CM into pt room per request. Answered questions regarding GARCIA. Pt aware that pt is accepted at TCU. Pt is at [facility]. Original Note: TC to [facility], spoke with Julianne, referral made for pt.
--- NOTE | 2025-02-28 12:05 | MRI_ITS ---
PROCEDURE: SPINE LUMBAR (ROUTINE) 02/28/2025 REASON FOR EXAM: PARAPARESIS, PARKINSON-LIKE SYMPTOMS. TECHNIQUE: Procedure Code: MRISPL Modality: MR Procedure: SPINE LUMBAR (ROUTINE) FINDINGS: Normal lumbar vertebral body height. Multilevel degenerative retrolisthesis. Negative for compression deformity. Negative for marrow edema. Reactive increased disc signal at L3-4. Normal conus. No retroperitoneal or paravertebral mass lesion. Concentric annular bulging at L1-2 with mild canal narrowing. At L2-3 concentric annular bulging also results in mild canal narrowing. Inferior foraminal narrowing bilaterally at L1-2 and L2-3. At L3-4 there is also mild canal narrowing and there is also moderate right L3 foraminal narrowing from bone spur. At L4-5 disc space narrowing and concentric bulge with minimal canal narrowing and asymmetric moderate right L4 foraminal stenosis. At L5-S1, no spinal stenosis. Asymmetric narrowing of the left L5 neural foramen but more severe narrowing of the right L5 neural foramina at this level MRI/Spine Lumbar (Routine) IMPRESSION: Multilevel right-sided neural foraminal stenosis. Please correlate clinically. Most severe at L5-S1. Reading Location[facility]
--- NOTE | 2025-02-28 12:05 | MRI_ITS ---
PROCEDURE: SPINE THORACIC (ROUTINE) 02/28/2025 REASON FOR EXAM: PARAPARESIS, PARKINSON-LIKE SYMPTOMS. TECHNIQUE: Procedure Code: MRISPT Modality: MR Procedure: SPINE THORACIC (ROUTINE) Multiplanar and multisequence images were obtained. FINDINGS: Patient declined contrast due to kidney injury. It is noted that gadolinium is not nephrotoxic. There is diffuse thoracic degenerative disc space narrowing and there is no thoracic compression deformity. On T2 weighted images, the thoracic spinal cord is normal in caliber and signal without compression or syrinx. No thoracic disc protrusion is identified. No paravertebral fluid collection or soft tissue mass. Minimal disc bulging at T5-6, T6-7 and T7-8 without significant spinal stenosis. Minor annular bulging at T8-9, T9-10 and T10-11. Bilateral foraminal narrowing at T9-10 and T10-11. Prior upper thoracic fusion without recurrent pathology MRI/Spine Thoracic (Routine) IMPRESSION: Disc space narrowing and multilevel thoracic degenerative annular bulging. Bro ad-based protrusion seen in the upper lumbar spine not completely imaged currently. Prior upper thoracic fusion. Reading [facility]
--- NOTE | 2025-02-28 12:05 | MRI_ITS ---
PROCEDURE: SPINE CERVICAL (ROUTINE) 02/28/2025 REASON FOR EXAM: PARAPARESIS, PARKINSON-LIKE SYMPTOMS. TECHNIQUE: Procedure Code: MRISP Modality: MR Procedure: SPINE CERVICAL (ROUTINE) Multiplanar and multisequence images were obtained without IV contrast administration. FINDINGS: Extensive dorsal decompression with placement of posterior fusion screws at T1, T2 and T3. Extensive articular screw posterior fusion throughout the cervical vertebral column. Anterior fusion suspected between C3 and C4. Normal spinal cord. Negative for Chiari deformity. No recurrent central spinal stenosis. No disc protrusions are identified. Negative for soft tissue mass. Negative for demyelination. MRI/Spine Cervical (Routine) IMPRESSION: Extensive dorsal decompression and articular screw fusion with prior anterior f usion at C3-4. Normal spinal cord without recurrent central stenosis. Negative for discitis or osteomyelitis. Patient r efused contrast. Reading Location[facility]
--- NOTE | 2025-02-28 12:07 | PN.HOSP_ITS ---
Reason for Visit Chief Complaint: Debility, BL LE weakness. Objective Data Objective Data Vital Signs: Vital Signs Temp Pulse Resp BP Pulse Ox O2 Del Method 97.8 F 64 16 132/49 H 97 Room Air 02/28/25 08:42 02/28/25 08:42 02/28/25 08:42 02/28/25 08:42 02/28/25 08:42 02/28/25 09:00 Oxygen Delivery Method Room Air Weight: 174 lb 3.2 oz Body Mass Index (BMI) 28.0 Intake & Output: Intake and Output for Last 24 Hours 02/26/25 02/27/25 02/28/25 23:59 23:59 23:59 Intake Total 500 / 700 700 / 1100 400 / 400 Output Total 1500 / 1750 1000 / 1000 Balance -1000 / -1050 -300 / 100 400 / 400 Medical Nutrition Assessment Dietitian: Malnutrition Criteria Met Start: 02/25/25 16:22 Freq: Status: Active Protocol: Document 02/25/25 16:26 RMA (Rec: 02/25/25 16:26 RMA [id number]) Nutrition Malnutrition Evidence of Yes Malnutrition Exists Malnutrition (severe Chronic ): Evidenced By Suboptimal Energy Intake (Severe),Weight Loss (Severe) Clinical Problem Chronic Disease or Condition Related Malnutrition Etiology Severe protein-calorie malnutrition in the context of chronic disease and debility related to inadequate oral intake~ Signs/Symptoms as evidenced by PO meeting less than 50-75% estimated nutrition needs x 3-6 months and unintentional weight loss ~14% x past 3-6 months Status Active Problem Recommendation Dietitian Will liberalize diet to Regular given signs/symptoms of Recommendations/ malnutrition. Changes Will add 240mL ensure plus HP with breakfast. Will add magic cup dessert with lunch and dinner tray. Trend weight closely and adjust ONS to optimize oral intake. Lab / Micro Data 02/26/25 05:46 02/26/25 05:46 Micro: Microbiology 02/24/25 22:30 Mucosa - Nose SARS-CoV-2, Influenza & RSV (PCR) - Final Physical Exam Narrative Seen and examined Patient admitted with movement disorder, disequilibrium, short shuffling gait and near fall situation. Her symptoms got worse with Sinemet. Patient denies any improvement compared to yesterday. Did not had a BM since Friday. Physical exam General: Alert, Oriented x3, Cooperative. BMI 26.3 kg/m?. Fatigue. HEENT: Atraumatic, PERRLA, EOMI, Normocephalic. Oral: No Gingival or Mucosal Lesions/ Ulcerations Neck: Supple, No JVD, Negative Carotid Bruits Chest wall/Lungs: Air entry diminished in bilateral lung bases. No crepitation/rhonchi Cardiovascular: Regular rate and rhythm, Normal S1,S2, No M/G/R Abdomen: Bowel Sounds Present, Soft, Non Tender, Non-Distended : No dysuria. No renal angle tenderness. No suprapubic tenderness. Extremities: No edema, Capillary Refill Less than 3 Seconds Skin: No rashes, No breakdown Musculoskeletal: Left leg is worse than right. Left knee and hip 3/5. The bed into second, right knee and hip 4/5 mild drift but did not hit the bed. Bilateral degenerative knee arthritis. Neurological: Cranial nerves II-XII grossly intact, DTR 2+/4. No acute focal neurological deficit. Psych/Mental Status: Flat affect Assessment & Plan Assessment/Plan (1) Adult failure to thrive: PLAN: Plan The patient is an 79 y/o F is being admitted for generalized weakness with recent diagnosis of Parkinson-like disease therefore possible progression of her Parkinson disease with weakness of her legs, shuffling gait and not able to walk. #1. Debility, Weakness, recent concern Parkinson-like disease with worsening debility, Adult FTT: Patient admitted on MedSurg floor. As per , Sinemet worsened her symptoms and therefore was discontinued. PT and OT ordered. Case management consultation for skilled facility placement 02/27: Continue PT and OT and pain control. Stool softener including Dulcolax oral ordered as patient did not had BM. 02/28: Patient had bowel movement yesterday. #2. 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 She states he saw Dr. Rdz and Dr. Andrea Lopez neurologist in the [facility]. 02/27: Neuro consult ordered. 02/28: Neurologist recommended MRI cervical, thoracic and lumbar spine with and without contrast. Aggressive thiamine replacement, 500 mg IV every 8 hourly for 3 days then 250 regular IV daily for 5 days and then 100 mg p.o. daily. B12, folate and thiamine level. [employer] evaluation. Did not get any records from [facility] yet. #3. Hypertension: Patient was on losartan. #4. Possible Chronic normocytic anemia: Admission hemoglobin 11.4, MCV 95, repeat H&H 10.3/32.4%. Platelet count normal. #5. Chronic Kidney Disease stage A: Admission BUN/Cr 23/1.23, GFR 44, baseline not known. Repeat BUN/creatinine 221/1.09. 02/28: Creatinine 1.03 #6. Anxiety and depression/mood disorder: continue patient home duloxetine and mirtazapine regimen #7. Chronic neuropathy: continue patient home gabapentin regimen #8. RLS: Was on pramipexole in the past. #9. DVT prophylaxis: Lovenox. #10. CODE status: Patient HCPOA is her and living will is in place. Discussed CODE status at length including difference between FULL code, DNR-CCA and DNR-CC status. Following discussions about the differences in these status, requested DNR-CCA, no intubation. Charges/Coding Visit Charges Inpatient E&M: 17341 Subs Hosp L2
[2025-02-28 13:46] LABS: FOLATES,SERUM (FOLIC ACID) 6.55 ng/mL (4.60-34.80)
[2025-02-28 13:47] LABS: Vitamin B12 466 pg/mL (180-914)
[2025-02-28] MEDS: Thiamine Hydrochloride 500 MG in 0.9% Normal Saline (100mL Bag) 100 ML 200 MG IV ×2 (13:56→22:22)
[2025-02-28 14:46] VITALS: BP 122/67; PULSE 71; RESP 14; TEMP 36.4; O2SAT 97
[2025-02-28 20:06] VITALS: BP 143/58; PULSE 69; RESP 18; TEMP 36.6; O2SAT 97
[2025-02-28] MEDS: 0.9% Saline Lock 10 ML Syringe IV (22:22)
--- NOTE | 2025-02-28 22:52 | PCM.HOSP.N ---
Hospitalist Note Pt c/o dysuria, ordered clean catch UA. 03.01.250: Chart reviewed, found that patient was straight cathed for urinalysis this morning at 0600. UA results demonstrate 25 occult blood, 500 leukocyte esterase, 5-10 RBC, 10-25 WBC, 2+ bacteria. In conjunction with symptoms of dysuria and frequency with bladder pressure, I ordered 5 days worth of nitrofurantoin 100 mg p.o. twice daily. Urine culture pending.
[2025-03-01 04:29] VITALS: BMI 27.6
[2025-03-01 05:39] VITALS: BP 117/67; PULSE 68; RESP 18; TEMP 36.6; O2SAT 96
[2025-03-01] MEDS: Thiamine Hydrochloride 500 MG in 0.9% Normal Saline (100mL Bag) 100 ML 200 MG IV ×3 (05:47→20:57)
[2025-03-01 08:00] VITALS: BP 123/56; PULSE 71; RESP 14; TEMP 36.5; O2SAT 97
--- NOTE | 2025-03-01 11:37 | CASEMGMT ---
Addendum entered by Uyen Gonsalves 03/01/25 11:52: Spoke with [facility], precert will be submitted tomorrow. Original Note: Spoke with hospitalist in rounds and reported to admissions in TCU that it is ok to submit for precert. DC Plan: [facility] pending precert
--- NOTE | 2025-03-01 11:49 | PN.NEURO_ITS ---
Assessment and Plan: Neuro Assessment/Plan JIM MAGAÑA is a 79 F with a past medical history of parkinsonism, cervical myelopathy, being evaluated by Teleneurology for falls and worsening parkinsonism symptoms. 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 There is suspicion for a parkinsonism on history and exam is consistent with this, however the rigidity and bradykinesia seem out of proportion to symptoms. Would like to assess gait but very difficult to evaluate and there is weakness in the LE L>R (and her bradykinesia is also worse L>R) but appears diffusely with weakness. Ddx for falls and weakness include worsening parkinsonism, worsening neuropathy, cannot rule out a myeloneuropathy. Today patient exam in more detail without clear neuropathy and improving weakness. Improvement is odd but may represent thiamine replacement or just general improvement with therapy interventions. There is clearly some parkinsonism on gait evaluation and suspect that her falls and difficulty moving are more from parkinsonism. 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 Subject: Neurology Subjective PAtient had 4 bowel movements yesterday. STates that sometimes she can have several days without bowel movement and other times with have sudden stool incontinence. ? NEURO: -? Mental Status: The patient was alert and oriented to time, place, and person. Normal recent/remote memory, concentration, and general fund of knowledge. -? Language: speech is hoarse.? Naming, repetition, fluency, and comprehension intact. -? Cranial Nerves: PERRL 2mm/brisk. EOMI, visual chau full, L eye ptosis, no facial asymmetry, facial sensation intact, hearing intact, tongue midline, no evidence of atrophy or fibrillations. -? Motor: RUE pronation and drift -? 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 Rigidity noted on the L, none on the R in the UE and the LE -? Sensation- intact to LT b/l Temp: diminished on the R upper leg, cool going down and intact with no length dependence R and L Vibration: intact b/l no length dependence proprioception: intact b/l -? Coordination: No dysmetria on [id number] b/l, HTS not tested d/t weakness -? Gait- shuffling gait, narrow base. EEG Results Procedure Details EEG Procedure Details: JIM MAGAAÑ is a 79 year old F with a past medical history of , who presents for evaluation of Electroencephalogram on DATE at TIME Objective Data Objective Data Vital Signs: Vital Signs Temp Pulse Resp BP Pulse Ox O2 Del Method 97.7 F L 71 14 123/56 H 97 Room Air 03/01/25 08:00 03/01/25 08:00 03/01/25 08:00 03/01/25 08:00 03/01/25 08:00 03/01/25 08:00 Oxygen Delivery Method Room Air Weight: 77.8 kg Body Mass Index (BMI) 27.6 Intake & Output: Intake and Output for Last 24 Hours 02/27/25 02/28/25 03/01/25 23:59 23:59 23:59 Intake Total 700 / 1100 1160 / 1160 705 / 705 Output Total 1000 / 1000 500 / 500 1500 / 1500 Balance -300 / 100 660 / 660 -795 / -795 Medical Nutrition Assessment Dietitian: Malnutrition Criteria Met Start: 02/25/25 16:22 Freq: Status: Active Protocol: Document 02/25/25 16:26 RMA (Rec: 02/25/25 16:26 RMA [id number]) Nutrition Malnutrition Evidence of Yes Malnutrition Exists Malnutrition (severe Chronic ): Evidenced By Suboptimal Energy Intake (Severe),Weight Loss (Severe) Clinical Problem Chronic Disease or Condition Related Malnutrition Etiology Severe protein-calorie malnutrition in the context of chronic disease and debility related to inadequate oral intake~ Signs/Symptoms as evidenced by PO meeting less than 50-75% estimated nutrition needs x 3-6 months and unintentional weight loss ~14% x past 3-6 months Status Active Problem Recommendation Dietitian Will liberalize diet to Regular given signs/symptoms of Recommendations/ malnutrition. Changes Will add 240mL ensure plus HP with breakfast. Will add magic cup dessert with lunch and dinner tray. Trend weight closely and adjust ONS to optimize oral intake. Lab / Micro Data 02/26/25 05:46 02/26/25 05:46 Labs: Laboratory Results - last 24 hr 02/28/25 12:43: Vitamin B12 466, Serum Folate 6.55 Micro: Microbiology 02/24/25 22:30 Mucosa - Nose SARS-CoV-2, Influenza & RSV (PCR) - Final Radiography Diagnostic Testing: Radiology Impression Cervical Spine MRI 02/28/25 12:05 IMPRESSION: Extensive dorsal decompression and articular screw fusion with prior anterior fusion at C3-4. Normal spinal cord without recurrent central stenosis. Negative for discitis or osteomyelitis. Patient refused contrast. Reading Location: [facility] Lumbar Spine MRI 02/28/25 12:05 IMPRESSION: Multilevel right-sided neural foraminal stenosis. Please correlate clinically. Most severe at L5-S1. Reading Location: [facility] Thoracic Spine MRI 02/28/25 12:05 IMPRESSION: Disc space narrowing and multilevel thoracic degenerative annular bulging. Broad-based protrusion seen in the upper lumbar spine not completely imaged currently. Prior upper thoracic fusion. Reading Location: [facility]
[2025-03-01] MEDS: 0.9% Saline Lock 10 ML Syringe IV ×2 (13:41→14:29)
[2025-03-01 14:00] VITALS: BP 153/71; PULSE 71; RESP 15; TEMP 36.5; O2SAT 95
--- NOTE | 2025-03-01 14:02 | MRI_ITS ---
PROCEDURE: SPINE LUMBAR WITH CONTRAST; SPINE THORACIC WITH CONTRAST 03/01/2025 REASON FOR EXAM: THORACIC SPINE HAS SOME LESION.; BILATERAL LOWER EXTREMITY WEAKNESS. LOWER BACK PA TECHNIQUE: Procedure Code: MRISPLW; MRISPTW Modality: MR Procedure: SPINE LUMBAR WITH CONTRAST; SPINE THORACIC WITH CONTRAST Multiplanar and multisequence images were obtained without and with intravenous gadolinium-based contrast administration. CONTRAST: Clariscan VOLUME: 15 mL COMPARISON: MRI lumbar spine February 28, 2025. FINDINGS: Vertebrae: Preserved in height and signal. Alignment: Retrolisthesis L3 on L4 by 2 mm. Conus Medullaris: Unremarkable. No abnormal enhancement. Disc levels: Multilevel degenerate changes, better evaluated on noncontrast MRI lumbar spine yesterday 02/28/2025 predominantly for severe canal stenosis and severe bilateral foramina stenosis at L3-L4 along with fluid at L3-L4 disc space. No significant canal stenosis in the thoracic spine. Sacrum: No acute findings. Postcontrast images: Unremarkable without abnormal enhancement. MRI/Spine Lumbar WITH Contrast IMPRESSION: Unremarkable post-contrast images of the thoracic and lumbar spine without evid ence of osteomyelitis discitis or acute process. Multilevel degenerate changes of the lumbar spine. Reading Location: [facility]
--- NOTE | 2025-03-01 14:02 | MRI_ITS ---
PROCEDURE: SPINE LUMBAR WITH CONTRAST; SPINE THORACIC WITH CONTRAST 03/01/2025 REASON FOR EXAM: THORACIC SPINE HAS SOME LESION.; BILATERAL LOWER EXTREMITY WEAKNESS. LOWER BACK PA TECHNIQUE: Procedure Code: MRISPLW; MRISPTW Modality: MR Procedure: SPINE LUMBAR WITH CONTRAST; SPINE THORACIC WITH CONTRAST Multiplanar and multisequence images were obtained without and with intravenous gadolinium-based contrast administration. CONTRAST: Clariscan VOLUME: 15 mL COMPARISON: MRI lumbar spine February 28, 2025. FINDINGS: Vertebrae: Preserved in height and signal. Alignment: Retrolisthesis L3 on L4 by 2 mm. Conus Medullaris: Unremarkable. No abnormal enhancement. Disc levels: Multilevel degenerate changes, better evaluated on noncontrast MRI lumbar spine yesterday 02/28/2025 predominantly for severe canal stenosis and severe bilateral foramina stenosis at L3-L4 along with fluid at L3-L4 disc space. No significant canal stenosis in the thoracic spine. Sacrum: No acute findings. Postcontrast images: Unremarkable without abnormal enhancement. MRI/Spine Thoracic WITH Contrast IMPRESSION: Unremarkable post-contrast images of the thoracic and lumbar spine without evid ence of osteomyelitis discitis or acute process. Multilevel degenerate changes of the lumbar spine. Reading [facility]
--- NOTE | 2025-03-01 14:06 | PCM.PN.HOSP ---
Reason for Visit Chief Complaint: Debility, BL LE weakness. Objective Data Objective Data Vital Signs: Vital Signs Temp Pulse Resp BP Pulse Ox O2 Del Method 97.7 F L 71 14 123/56 H 97 Room Air 03/01/25 08:00 03/01/25 08:00 03/01/25 08:00 03/01/25 08:00 03/01/25 08:00 03/01/25 08:00 Oxygen Delivery Method Room Air Weight: 171 lb 8.314 oz Body Mass Index (BMI) 27.6 Intake & Output: Intake and Output for Last 24 Hours 02/27/25 02/28/25 03/01/25 23:59 23:59 23:59 Intake Total 700 / 1100 1160 / 1160 705 / 705 Output Total 1000 / 1000 500 / 500 1500 / 1500 Balance -300 / 100 660 / 660 -795 / -795 Medical Nutrition Assessment Dietitian: Malnutrition Criteria Met Start: 02/25/25 16:22 Freq: Status: Active Protocol: Document 02/25/25 16:26 RMA (Rec: 02/25/25 16:26 RMA [id number]) Nutrition Malnutrition Evidence of Yes Malnutrition Exists Malnutrition (severe Chronic ): Evidenced By Suboptimal Energy Intake (Severe),Weight Loss (Severe) Clinical Problem Chronic Disease or Condition Related Malnutrition Etiology Severe protein-calorie malnutrition in the context of chronic disease and debility related to inadequate oral intake~ Signs/Symptoms as evidenced by PO meeting less than 50-75% estimated nutrition needs x 3-6 months and unintentional weight loss ~14% x past 3-6 months Status Active Problem Recommendation Dietitian Will liberalize diet to Regular given signs/symptoms of Recommendations/ malnutrition. Changes Will add 240mL ensure plus HP with breakfast. Will add magic cup dessert with lunch and dinner tray. Trend weight closely and adjust ONS to optimize oral intake. Lab / Micro Data 02/26/25 05:46 02/26/25 05:46 Micro: Microbiology 02/24/25 22:30 Mucosa - Nose SARS-CoV-2, Influenza & RSV (PCR) - Final Radiography Diagnostic Testing: Radiology Impression Cervical Spine MRI 02/28/25 12:05 IMPRESSION: Extensive dorsal decompression and articular screw fusion with prior anterior fusion at C3-4. Normal spinal cord without recurrent central stenosis. Negative for discitis or osteomyelitis. Patient refused contrast. Reading Location: [facility] Lumbar Spine MRI 02/28/25 12:05 IMPRESSION: Multilevel right-sided neural foraminal stenosis. Please correlate clinically. Most severe at L5-S1. Reading Location: [facility] Thoracic Spine MRI 02/28/25 12:05 IMPRESSION: Disc space narrowing and multilevel thoracic degenerative annular bulging. Broad-based protrusion seen in the upper lumbar spine not completely imaged currently. Prior upper thoracic fusion. Reading Location: [facility] Physical Exam Narrative Seen and examined Patient admitted with movement disorder, disequilibrium, short shuffling gait and near fall situation. Her symptoms got worse with Sinemet. Patient denies any improvement compared to yesterday. Did not had a BM since Friday. Physical exam General: Alert, Oriented x3, Cooperative. BMI 26.3 kg/m?. Fatigue. HEENT: Atraumatic, PERRLA, EOMI, Normocephalic. Oral: No Gingival or Mucosal Lesions/ Ulcerations Neck: Supple, No JVD, Negative Carotid Bruits Chest wall/Lungs: Air entry diminished in bilateral lung bases. No crepitation/rhonchi Cardiovascular: Regular rate and rhythm, Normal S1,S2, No M/G/R Abdomen: Bowel Sounds Present, Soft, Non Tender, Non-Distended : No dysuria. No renal angle tenderness. No suprapubic tenderness. Extremities: No edema, Capillary Refill Less than 3 Seconds Skin: No rashes, No breakdown Musculoskeletal: Left leg is worse than right. Left knee and hip 3/5. The bed into second, right knee and hip 4/5 mild drift but did not hit the bed. Bilateral degenerative knee arthritis. Neurological: Cranial nerves II-XII grossly intact, DTR 2+/4. No acute focal neurological deficit. Psych/Mental Status: Flat affect Assessment & Plan Assessment/Plan (1) Adult failure to thrive: PLAN: Plan The patient is an 79 y/o F is being admitted for generalized weakness with recent diagnosis of Parkinson-like disease therefore possible progression of her Parkinson disease with weakness of her legs, shuffling gait and not able to walk. #1. Debility, Weakness, recent concern Parkinson-like disease with worsening debility, Adult FTT: Patient admitted on MedSurg floor. As per , Sinemet worsened her symptoms and therefore was discontinued. PT and OT ordered. Case management consultation for skilled facility placement 02/27: Continue PT and OT and pain control. Stool softener including Dulcolax oral ordered as patient did not had BM. 02/28: Patient had bowel movement yesterday. 03/01: Patient complained of mild pain over lumbar sacral area. Oxycodone ordered. Patient moving bowel. Pain management consulted but she had little benefit with epidural injection in [facility] about a month ago. #2. 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 She states he saw Dr. Rdz and Dr. Andrea Lopez neurologist in the [facility]. 02/27: Neuro consult ordered. 02/28: Neurologist recommended MRI cervical, thoracic and lumbar spine with and without contrast. Aggressive thiamine replacement, 500 mg IV every 8 hourly for 3 days then 250 regular IV daily for 5 days and then 100 mg p.o. daily. B12, folate and thiamine level. 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 Did not get any records from [facility] yet. 03/01: Patient had C-spine, thoracic and lumbar spine MRI without contrast yesterday and with contrast today. Thoracic spine MRI shows multilevel thoracic degenerative annular bulging and disc space narrowing. Lumbar spine MRI shows multilevel right sided foraminal stenosis neuroforaminal stenosis severe at L5-S1. Right upper thoracic fusion. Postcontrast images of lumbar and thoracic spine did not reveal discitis or osteomyelitis, and reported unremarkable MRI C-spine reported extensive dorsal decompression and articular screw fusion with prior anterior fusion at C3-4. Normal spinal cord without recurrent central stenosis. Negative for discitis or osteomyelitis. Discussed with the neurologist. Patient has been in TCU. #3. Hypertension: Patient was on losartan. #4. Possible Chronic normocytic anemia: Admission hemoglobin 11.4, MCV 95, repeat H&H 10.3/32.4%. Platelet count normal. #5. Chronic Kidney Disease stage A: Admission BUN/Cr 23/1.23, GFR 44, baseline not known. Repeat BUN/creatinine 221/1.09. 02/28: Creatinine 1.03 #6. Anxiety and depression/mood disorder: continue patient home duloxetine and mirtazapine regimen #7. Chronic neuropathy: continue patient home gabapentin regimen #8. RLS: Was on pramipexole in the past. #9. DVT prophylaxis: Lovenox. #10. CODE status: Patient WANDA is her and living will is in place. Discussed CODE status at length including difference between FULL code, DNR-CCA and DNR-CC status. Following discussions about the differences in these status, requested DNR-CCA, no intubation. Clinical Impression(s) from Imaging Studies Chest X-Ray 02/24/25 23:20 IMPRESSION: NO ACUTE FINDINGS. Cervical Spine MRI 02/28/25 12:05 IMPRESSION: Extensive dorsal decompression and articular screw fusion with prior anterior fusion at C3-4. Normal spinal cord without recurrent central stenosis. Negative for discitis or osteomyelitis. Patient refused contrast. Reading Location: [facility] Lumbar Spine MRI 02/28/25 12:05 IMPRESSION: Multilevel right-sided neural foraminal stenosis. Please correlate clinically. Most severe at L5-S1. Reading Location: [facility] Thoracic Spine MRI 02/28/25 12:05 IMPRESSION: Disc space narrowing and multilevel thoracic degenerative annular bulging. Broad-based protrusion seen in the upper lumbar spine not completely imaged currently. Prior upper thoracic fusion. Lumbar Spine MRI 03/01/25 14:02 IMPRESSION: Unremarkable post-contrast images of the thoracic and lumbar spine without evidence of osteomyelitis discitis or acute process. Multilevel degenerate changes of the lumbar spine. Thoracic Spine MRI 03/01/25 14:02 IMPRESSION: Unremarkable post-contrast images of the thoracic and lumbar spine without evidence of osteomyelitis discitis or acute process. Multilevel degenerate changes of the lumbar spine. Reading Location: [facility] Charges/Coding Visit Charges Inpatient E&M: 09890 Subs Hosp L2
[2025-03-01 15:13] LABS: Mucous, Urine 0 SEEN /hpf (<or=2+); Squamous Epithelial Cells - UA 0 SEEN /hpf (5-10)
[2025-03-01 15:17] LABS: Color, Urine Yellow (Yellow); Glucose, Dipstick Normal (Normal); Ketone-Dipstick Negative (Negative); Leukocyte Esterase-Dipstick 500 /ul (Negative); Nitrite-Dipstick Negative (Negative); Occult Blood-Urine 25 /ul (Negative); Protein-Dipstick Negative (Negative); Specific Gravity, Urine 1.010 (1.002-1.030); Urine Bilirubin Dipstick Negative (Negative)
[2025-03-01 15:54] LABS: Red Blood Cells-Urine 5-10 SEEN /hpf (0-5)
[2025-03-01 20:53] VITALS: BP 129/52; PULSE 65; RESP 18; TEMP 36.8; O2SAT 96
[2025-03-02 03:35] VITALS: BMI 27.1
[2025-03-02 05:36] VITALS: BP 122/48; PULSE 61; RESP 18; TEMP 36.6; O2SAT 94
[2025-03-02] MEDS: Thiamine Hydrochloride 500 MG in 0.9% Normal Saline (100mL Bag) 100 ML 200 MG IV ×2 (05:40→13:57)
[2025-03-02 07:19] LABS: Hematocrit 32.2 % (37-47); Hemoglobin 10.3 g/dL (12.0-15.0); Immature Granulocytes Count 0.010 X10^3/uL (0.0-0.0); Mean Corp Hgb Conc 32.0 g/dL (32-36); Mean Corpuscular Volume 96.7 fL (81-99); Mean Platelet Vol. 9.7 fl (6.2-12.0); NRBC Flagged by Analyzer 0 % (0-5); Platelet Count 251 K/mm3 (150-450); RBC Distribution Width CV 13.9 % (11.6-14.6); RBC Distribution Width SD 49.1 fl (35.1-43.9); Red Blood Count 3.33 M/mm3 (4.2-5.4); White Blood Count 5.4 K/mm3 (4.4-11.0)
[2025-03-02 07:30] VITALS: BP 122/57; PULSE 65; RESP 14; TEMP 36.6; O2SAT 95
[2025-03-02] MEDS: Senna/Docusate Sodium 1 Tablet 2 TABLET PO (07:40)
--- NOTE | 2025-03-02 07:43 | PCM.TXEXTCAR ---
Diet Diet Order/Speech Therapy: INPATIENT Hospital Diet / Speech Therapy Order(s) 02/25/25 16:23 Diet: Regular - General Food consistency:: Regular Liquid Consistency:: Regular/Thin Type of Dietary Supplement:: Magic Cup Dessert L and D Diet Comments: 240mL ensure plus HP with breakfast tray DC O2, CPAP, BIPAP needs Home O2 Discharge instructions: No Problem/Diagnosis (1) Adult failure to thrive: Status: Acute Code(s): R62.7 - Adult failure to thrive Plan The patient is an 79 y/o F is being admitted for generalized weakness with recent diagnosis of Parkinson-like disease therefore possible progression of her Parkinson disease with weakness of her legs, shuffling gait and not able to walk. #1. Debility, Weakness, recent concern Parkinson-like disease with worsening debility, Adult FTT: Patient admitted on MedSurg floor. As per , Sinemet worsened her symptoms and therefore was discontinued. PT and OT ordered. Case management consultation for skilled facility placement 02/27: Continue PT and OT and pain control. Stool softener including Dulcolax oral ordered as patient did not had BM. 02/28: Patient had bowel movement yesterday. 03/01: Patient complained of mild pain over lumbar sacral area. Oxycodone ordered. Patient moving bowel. Pain management consulted but she had little benefit with epidural injection in [facility] about a month ago. #2. 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.Records requested from [facility]. She states he saw Dr. Rdz and Dr. Andrea Lopez neurologist in the [facility]. 02/27: Neuro consult ordered. 02/28: Neurologist recommended MRI cervical, thoracic and lumbar spine with and without contrast. Aggressive thiamine replacement, 500 mg IV every 8 hourly for 3 days then 250 regular IV daily for 5 days and then 100 mg p.o. daily. B12, folate and thiamine level. IT SUPPORT CONSULTANT evaluation. Did not get any records from [facility] yet. 03/01: Patient had C-spine, thoracic and lumbar spine MRI without contrast yesterday and with contrast today. Thoracic spine MRI shows multilevel thoracic degenerative annular bulging and disc space narrowing. Lumbar spine MRI shows multilevel right sided foraminal stenosis neuroforaminal stenosis severe at L5-S1. Right upper thoracic fusion. Postcontrast images of lumbar and thoracic spine did not reveal discitis or osteomyelitis, and reported unremarkable MRI C-spine reported extensive dorsal decompression and articular screw fusion with prior anterior fusion at C3-4. Normal spinal cord without recurrent central stenosis. Negative for discitis or osteomyelitis. Discussed with the neurologist. Patient has been in TCU. #3. Hypertension: Patient was on losartan. #4. Possible Chronic normocytic anemia: Admission hemoglobin 11.4, MCV 95, repeat H&H 10.3/32.4%. Platelet count normal. #5. Chronic Kidney Disease stage A: Admission BUN/Cr 23/1.23, GFR 44, baseline not known. Repeat BUN/creatinine 221/1.09. 02/28: Creatinine 1.03 #6. Anxiety and depression/mood disorder: continue patient home duloxetine and mirtazapine regimen #7. Chronic neuropathy: continue patient home gabapentin regimen #8. RLS: Was on pramipexole in the past. #9. DVT prophylaxis: Lovenox. #10. CODE status: Patient HCPOA is her and living will is in place. Discussed CODE status at length including difference between FULL code, DNR-CCA and DNR-CC status. Following discussions about the differences in these status, requested DNR-CCA, no intubation. Clinical Impression(s) from Imaging Studies Chest X-Ray 02/24/25 23:20 IMPRESSION: NO ACUTE FINDINGS. Cervical Spine MRI 02/28/25 12:05 IMPRESSION: Extensive dorsal decompression and articular screw fusion with prior anterior fusion at C3-4. Normal spinal cord without recurrent central stenosis. Negative for discitis or osteomyelitis. Patient refused contrast. Reading Location: [facility] Lumbar Spine MRI 02/28/25 12:05 IMPRESSION: Multilevel right-sided neural foraminal stenosis. Please correlate clinically. Most severe at L5-S1. Reading Location: [facility] Thoracic Spine MRI 02/28/25 12:05 IMPRESSION: Disc space narrowing and multilevel thoracic degenerative annular bulging. Broad-based protrusion seen in the upper lumbar spine not completely imaged currently. Prior upper thoracic fusion. Lumbar Spine MRI 03/01/25 14:02 IMPRESSION: Unremarkable post-contrast images of the thoracic and lumbar spine without evidence of osteomyelitis discitis or acute process. Multilevel degenerate changes of the lumbar spine. Thoracic Spine MRI 03/01/25 14:02 IMPRESSION: Unremarkable post-contrast images of the thoracic and lumbar spine without evidence of osteomyelitis discitis or acute process. Multilevel degenerate changes of the lumbar spine. Reading Location: [facility] Allergies/Procedures Done in Hospital Allergies No Known Allergies Allergy (Verified 02/24/25 21:57) Type of Care/Length of Stay Estimated LOS: Convalescent Care Less Than 30 days Type of Care Needed: Skilled Rehab Potential: Good Prognosis: Good Additional Orders/Day of Discharge Day of Discharge: 03/02/25 Dietary and Speech Recommendations Dietitian Recommendations/Changes: Will liberalize diet to Regular given signs/symptoms of malnutrition. Will add 240mL ensure plus HP with breakfast. Will add magic cup dessert with lunch and dinner tray. Trend weight closely and adjust ONS to optimize oral intake. Discharge Plan Admission Admit Date/Time: 02/25/25 01:10 Primary Reason for Your Visit: chr B/L leg weakness, severe bilateral neural foraminal stenosis L5-S1 Attending Provider: Yong Roach Primary Care Provider: EBENEZER CALLEJAS Consulting Providers: Ingrid Muniz; Vasile Willson; Jimenez Painter; Kathi Haley; Venita Soliz; Kelly Jacobsen; Dalia Gordon; Choco Moreira; Catie Dillon; Edwardo Reyna; Kurt Madsen; Julius Fuentes; Ana Gonzalez; Maria Ines Rae; Mendoza Berman; Ronda Santacruz; Negra Cantu; Cordell Augustine; Ozzie Terry; Rafa Ramos; Eris Plaza; Laine Adams; Johanna Walker; Vasile Mehta Discharge Orders/Prescriptions Prescriptions: New nitrofurantoin monohyd/m-cryst 100 mg Capsule 100 mg PO BID 4 Days Qty: 0 0RF oxycodone 5 mg Tablet 2.5 - 5 mg PO Q4H PRN PRN (Reason: Pain Score 4-10 Or Pre Pt/Ot) 3 Days Qty: 7 0RF sennosides-docusate sodium [Stimulant Laxative Plus] 8.6-50 mg Tablet 2 tab PO BID Qty: 0 0RF thiamine HCl (vitamin B1) 100 mg/mL Solution 500 mg IV Q8 Qty: 2 0RF Rx Instructions: Last dose and send 03/03/2025 at 6:32 AM thiamine in 0.9 % sod chloride 500 mg/100 mL solution 250 mg IV DAILY 5 Days Rx Instructions: starting on 03/04/25 till 03/08/25 thiamine HCl (vitamin B1) 100 mg tablet 100 mg PO DAILY 30 Days Qty: 30 2RF Rx Instructions: starting 03/09/25 Continued melatonin 5 mg capsule 5 mg PO QHS PRN (Reason: sleep) baclofen 10 mg tablet 10 mg PO BID gabapentin 300 mg capsule 300 mg PO DAILY mirtazapine 7.5 mg tablet 7.5 mg PO QHS duloxetine 30 mg capsule,delayed release(DR/EC) 30 mg PO BID cyclobenzaprine 10 mg tablet 10 mg PO TID PRN PRN (Reason: muscle spasm) trazodone 100 mg tablet 100 mg PO QHS Referrals / Follow Up: EBENEZER CALLEJAS [Other] Cristian Torrez MD [Med Staff - Active Staff, Orthopedics] - Within 1 Month Vasile Mehta MD [Med Staff - Active Staff, Pain Management] - Within 1 Week Caleb Alston MD [Non-Staff -Ordering Privileges, Neurology] - Within 2 Weeks Disposition Disposition (needs filled in before D/C Order can be placed): [facility] Facility
[2025-03-02 07:55] LABS: Anion Gap 9 (5-15); BUN 23 mg/dL (4-19); BUN/Creat Ratio 20.7 RATIO (10-20); Calcium,Total 9.0 mg/dL (7.6-11.0); Carbon Dioxide 24.4 mmol/L (21.0-32.0); Chloride 107 mmol/L (98-108); Estimated Creatinine Clearance 41.38 ml/min (50-250); Glucose 101 mg/dL (70-99); Potassium 4.3 mmol/L (3.3-5.1)
--- NOTE | 2025-03-02 11:09 | CASEMGMT ---
Addendum entered by Uyen Gonsalves 03/02/25 15:07: Precert received, TCU can administer thiamine IV. Pt is medically ready to be trf'd to [facility] TCU. Tubed signed med list and trf to ext care to TCU. Placed copy of med list in chart. Pt nurse aware that report can be called. RN CM into pt room, pt and aware that she will be trf'd to TCU today. Pt and deny any further questions. Original Note: After rounds with hospitalist, precert requested to be started. [facility] TCU checking to confirm they can administer IV thiamine as well.
--- NOTE | 2025-03-02 13:41 | PCM.PN.HOSP ---
Reason for Visit Chief Complaint: Debility, BL LE weakness. Objective Data Objective Data Vital Signs: Vital Signs Temp Pulse Resp BP Pulse Ox O2 Del Method 97.9 F 65 14 122/57 H 95 Room Air 03/02/25 07:30 03/02/25 07:30 03/02/25 07:30 03/02/25 07:30 03/02/25 07:30 03/02/25 07:30 Oxygen Delivery Method Room Air Weight: 167 lb 12.348 oz Body Mass Index (BMI) 27.1 Intake & Output: Intake and Output for Last 24 Hours 02/28/25 03/01/25 03/02/25 23:59 23:59 23:59 Intake Total 1160 / 1160 915 / 915 605 / 605 Output Total 500 / 500 1500 / 1500 750 / 750 Balance 660 / 660 -585 / -585 -145 / -145 Medical Nutrition Assessment Dietitian: Malnutrition Criteria Met Start: 02/25/25 16:22 Freq: Status: Active Protocol: Document 02/25/25 16:26 RMA (Rec: 02/25/25 16:26 RMA [id number]) Nutrition Malnutrition Evidence of Yes Malnutrition Exists Malnutrition (severe Chronic ): Evidenced By Suboptimal Energy Intake (Severe),Weight Loss (Severe) Clinical Problem Chronic Disease or Condition Related Malnutrition Etiology Severe protein-calorie malnutrition in the context of chronic disease and debility related to inadequate oral intake~ Signs/Symptoms as evidenced by PO meeting less than 50-75% estimated nutrition needs x 3-6 months and unintentional weight loss ~14% x past 3-6 months Status Active Problem Recommendation Dietitian Will liberalize diet to Regular given signs/symptoms of Recommendations/ malnutrition. Changes Will add 240mL ensure plus HP with breakfast. Will add magic cup dessert with lunch and dinner tray. Trend weight closely and adjust ONS to optimize oral intake. Lab / Micro Data 03/02/25 06:48 03/02/25 06:48 Labs: Laboratory Results - last 24 hr 03/01/25 06:00: Urine Color Yellow, Urine Clarity Clear, Urine pH 6.0, Ur Specific [employer] 1.010, Urine Protein Negative, Urine Glucose (UA) Normal, Urine Ketones Negative, Urine Occult Blood 25 H, Urine Nitrite Negative, Urine Bilirubin Negative, Urine Urobilinogen Normal, Ur Leukocyte Esterase 500 H, Urine RBC 5-10 SEEN, Urine WBC 10-25 SEEN, Ur Squamous Epith Cells 0 SEEN, Urine Bacteria 2+, Urine Mucus 0 SEEN 03/02/25 06:48: WBC 5.4, RBC 3.33 L, Hgb 10.3 L, Hct 32.2 L, MCV 96.7, MCH 30.9, MCHC 32.0, RDW Std Deviation 49.1 H, RDW Coeff of Dat 13.9, Plt Count 251, MPV 9.7, Immature Gran % (Auto) 0.200, Neut % (Auto) 52.5, Lymph % (Auto) 30.9, [place] % (Auto) 9.3, Eos % (Auto) 6.5 H, Baso % (Auto) 0.6, Absolute Neuts (auto) 2.8, Absolute Lymphs (auto) 1.67, Nucleated RBC % 0, Sodium 140, Potassium 4.3, Chloride 107, Carbon Dioxide 24.4, Anion Gap 9, BUN 23 H, Creatinine 1.13, Estim Creat Clear Calc 41.38 L, Est GFR (MDRD) Non-Af 49 L, BUN/Creatinine Ratio 20.7 H, Glucose 101 H, Calcium 9.0 Micro: Microbiology 02/24/25 22:30 Mucosa - Nose SARS-CoV-2, Influenza & RSV (PCR) - Final Radiography Diagnostic Testing: Radiology Impression Lumbar Spine MRI 03/01/25 14:02 IMPRESSION: Unremarkable post-contrast images of the thoracic and lumbar spine without evidence of osteomyelitis discitis or acute process. Multilevel degenerate changes of the lumbar spine. Reading Location: [facility] Thoracic Spine MRI 03/01/25 14:02 IMPRESSION: Unremarkable post-contrast images of the thoracic and lumbar spine without evidence of osteomyelitis discitis or acute process. Multilevel degenerate changes of the lumbar spine. Reading Location: [facility] Physical Exam Narrative Seen and examined As per nursing staff patient complain of lower back pain mainly on movement. Discussed about RFA for lumbar pain after my discussion with pain management Dr. Mehta. Patient admitted with movement disorder, disequilibrium, short shuffling gait and near fall situation. Her symptoms got worse with Sinemet. Patient having small bowel movement. Physical exam General: Alert, Oriented x3, Cooperative. BMI 26.3 kg/m?. Fatigue. HEENT: Atraumatic, PERRLA, EOMI, Normocephalic. Oral: No Gingival or Mucosal Lesions/ Ulcerations Neck: Supple, No JVD, Negative Carotid Bruits Chest wall/Lungs: Air entry diminished in bilateral lung bases. No crepitation/rhonchi Cardiovascular: Regular rate and rhythm, Normal S1,S2, No M/G/R Abdomen: Bowel Sounds Present, Soft, Non Tender, Non-Distended : No dysuria. No renal angle tenderness. No suprapubic tenderness. Extremities: No edema, Capillary Refill Less than 3 Seconds Skin: No rashes, No breakdown Musculoskeletal: Left leg weakness worse than right. Left knee and hip 3/5. Right hip and knee 4/5 mild drift but did not hit the bed. Bilateral degenerative knee arthritis. Neurological: Cranial nerves II-XII grossly intact, DTR 2+/4. No acute focal neurological deficit. Psych/Mental Status: Flat affect Assessment & Plan Assessment/Plan (1) Adult failure to thrive: PLAN: Plan The patient is an 79 y/o F is being admitted for generalized weakness with recent diagnosis of Parkinson-like disease therefore possible progression of her Parkinson disease with weakness of her legs, shuffling gait and not able to walk. #1. Debility, Weakness, recent concern Parkinson-like disease with worsening debility, Adult FTT: Patient admitted on MedSurg floor. As per , Sinemet worsened her symptoms and therefore was discontinued. PT and OT ordered. Case management consultation for skilled facility placement 02/27: Continue PT and OT and pain control. Stool softener including Dulcolax oral ordered as patient did not had BM. 02/28: Patient had bowel movement yesterday. 03/01: Patient complained of mild pain over lumbar sacral area. Oxycodone ordered. Patient moving bowel. Pain management consulted but she had little benefit with epidural injection in [facility] about a month ago. #2. 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 She states he saw Dr. Rdz and Dr. Andrea Lopez neurologist in the [facility]. 02/27: Neuro consult ordered. 02/28: Neurologist recommended MRI cervical, thoracic and lumbar spine with and without contrast. Aggressive thiamine replacement, 500 mg IV every 8 hourly for 3 days then 250 regular IV daily for 5 days and then 100 mg p.o. daily. B12, folate and thiamine level. REMOTE SENSING RESEARCH SCIENTIST evaluation. Did not get any records from [facility] yet. 03/01: Patient had C-spine, thoracic and lumbar spine MRI without contrast yesterday and with contrast today. Thoracic spine MRI shows multilevel thoracic degenerative annular bulging and disc space narrowing. Lumbar spine MRI shows multilevel right sided foraminal stenosis neuroforaminal stenosis severe at L5-S1. Right upper thoracic fusion. Postcontrast images of lumbar and thoracic spine did not reveal discitis or osteomyelitis, and reported unremarkable MRI C-spine reported extensive dorsal decompression and articular screw fusion with prior anterior fusion at C3-4. Normal spinal cord without recurrent central stenosis. Negative for discitis or osteomyelitis. Discussed with the neurologist. Patient has been in TCU. 03/02: Patient on IV thiamine and can continue in TCU. Pre-CERT pending. e please complete. Discussed with the pain management Dr. Mehta and he will follow as an outpatient to evaluate for RFA of lumbar radicular pain. There is no bed available in TCU #3. Hypertension: Patient was on losartan. #4. Possible Chronic normocytic anemia: Admission hemoglobin 11.4, MCV 95, repeat H&H 10.3/32.4%. Platelet count normal. #5. Chronic Kidney Disease stage A: Admission BUN/Cr 23/1.23, GFR 44, baseline not known. Repeat BUN/creatinine 221/1.09. 02/28: Creatinine 1.03 #6. Anxiety and depression/mood disorder: continue patient home duloxetine and mirtazapine regimen #7. Chronic neuropathy: continue patient home gabapentin regimen #8. RLS: Was on pramipexole in the past. #9. DVT prophylaxis: Lovenox. #10. CODE status: Patient WANDA is her and living will is in place. Discussed CODE status at length including difference between FULL code, DNR-CCA and DNR-CC status. Following discussions about the differences in these status, requested DNR-CCA, no intubation. Clinical Impression(s) from Imaging Studies Chest X-Ray 02/24/25 23:20 IMPRESSION: NO ACUTE FINDINGS. Cervical Spine MRI 02/28/25 12:05 IMPRESSION: Extensive dorsal decompression and articular screw fusion with prior anterior fusion at C3-4. Normal spinal cord without recurrent central stenosis. Negative for discitis or osteomyelitis. Patient refused contrast. [facility] Lumbar Spine MRI 02/28/25 12:05 IMPRESSION: Multilevel right-sided neural foraminal stenosis. Please correlate clinically. Most severe at L5-S1. Reading Location[facility] Thoracic Spine MRI 02/28/25 12:05 IMPRESSION: Disc space narrowing and multilevel thoracic degenerative annular bulging. Broad-based protrusion seen in the upper lumbar spine not completely imaged currently. Prior upper thoracic fusion. Lumbar Spine MRI 03/01/25 14:02 IMPRESSION: Unremarkable post-contrast images of the thoracic and lumbar spine without evidence of osteomyelitis discitis or acute process. Multilevel degenerate changes of the lumbar spine. Thoracic Spine MRI 03/01/25 14:02 IMPRESSION: Unremarkable post-contrast images of the thoracic and lumbar spine without evidence of osteomyelitis discitis or acute process. Multilevel degenerate changes of the lumbar spine. Reading Location: [id number] Charges/Coding Visit Charges Inpatient E&M: 37483 Subs Hosp L2
[2025-03-02 14:00] VITALS: BP 151/68; PULSE 79; RESP 15; TEMP 36.3; O2SAT 97
--- NOTE | 2025-03-02 14:42 | DS.PCM_ITS ---
Providers Date of Admission: 02/25/25 Date of Discharge: 03/02/25 Primary Care Physician: EBENEZER CALLEJAS Consultations 02/27/25 11:27 Consult: Tele-Neurology Routine Consulting Provider: [facility] Reason for Consult: possible parkinson like disease, No improvement with Sinemet EMERGENT Consult: No MD Notified: Yes Date Notified: 02/27/25 Time Notified: 11:27 Method of Notification: Answering Service Comments:: notified answering service. Dr. Gordon occupational health professional today Nursing Unit Staff Notify [facility] of Tele-Neurology Consult: Yes 03/01/25 11:36 Consult: Pain Management Routine Consulting Provider: Vasile Mehta Reason for Consult: Bilateral lumbar sacral pain, bilateral leg EMERGENT Consult: No MD Notified: Yes Date Notified: 03/01/25 Time Notified: 11:36 Method of Notification: Text Reason For Visit: DEBILITY, ADULT FTT Diagnosis Discharge Diagnosis (1) Adult failure to thrive: Status: Acute Code(s): R62.7 - Adult failure to thrive Plan The patient is an 79 y/o F is being admitted for generalized weakness with recent diagnosis of Parkinson-like disease therefore possible progression of her Parkinson disease with weakness of her legs, shuffling gait and not able to walk. #1. Debility, Weakness, recent concern Parkinson-like disease with worsening debility, Adult FTT: Patient admitted on MedSurg floor. As per , Sinemet worsened her symptoms and therefore was discontinued. PT and OT ordered. Case management consultation for skilled facility placement 02/27: Continue PT and OT and pain control. Stool softener including Dulcolax oral ordered as patient did not had BM. 02/28: Patient had bowel movement yesterday. 03/01: Patient complained of mild pain over lumbar sacral area. Oxycodone ordered. Patient moving bowel. Pain management consulted but she had little benefit with epidural injection in [facility] about a month ago. #2. 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 She states he saw Dr. Rdz and Dr. Andrea Lpoez neurologist in the [facility]. 02/27: Neuro consult ordered. 02/28: Neurologist recommended MRI cervical, thoracic and lumbar spine with and without contrast. Aggressive thiamine replacement, 500 mg IV every 8 hourly for 3 days then 250 regular IV daily for 5 days and then 100 mg p.o. daily. B12, folate and thiamine level. ORE WASHER evaluation. Did not get any records from [facility] yet. 03/01: Patient had C-spine, thoracic and lumbar spine MRI without contrast yesterday and with contrast today. Thoracic spine MRI shows multilevel thoracic degenerative annular bulging and disc space narrowing. Lumbar spine MRI shows multilevel right sided foraminal stenosis neuroforaminal stenosis severe at L5- S1. Right upper thoracic fusion. Postcontrast images of lumbar and thoracic spine did not reveal discitis or osteomyelitis, and reported unremarkable MRI C- spine reported extensive dorsal decompression and articular screw fusion with prior anterior fusion at C3-4. Normal spinal cord without recurrent central stenosis. Negative for discitis or osteomyelitis. Discussed with the neurologist. DC bradycardia pain afternoon therefore being discharged there. Discharge med list written for IV thiamine as instructed by neurologist. B12 folate 66. Vitamin B1 level pending. Serum copper pending #3. Hypertension: Patient was on losartan. #4. Possible Chronic normocytic anemia: Admission hemoglobin 11.4, MCV 95, repeat H&H 10.3/32.4%. Platelet count normal. #5. Chronic Kidney Disease stage A: Admission BUN/Cr 23/1.23, GFR 44, baseline not known. Repeat BUN/creatinine 221/1.09. 02/28: Creatinine 1.03 #6. Anxiety and depression/mood disorder: continue patient home duloxetine and mirtazapine regimen #7. Chronic neuropathy: continue patient home gabapentin regimen #8. RLS: Was on pramipexole in the past. #9. DVT prophylaxis: Lovenox. #10. CODE status: Patient HCPOA is her and living will is in place. Discussed CODE status at length including difference between FULL code, DNR-CCA and DNR-CC status. Following discussions about the differences in these status, requested DNR-CCA, no intubation. Discharge medication reconciliation done. Discharge follow-up instructions completed. Discharge process discussed with the patient and all questions were answered to patient's satisfaction. Follow with PCP in 1 to 2 weeks Total time spent, exact 35 minutes on discharge meds reconciliation, examination, coordination of care with nurses and ancillary staff, review of imaging and blood test and discussion with the patient on follow-up instructions. Clinical Impression(s) from Imaging Studies Chest X-Ray 02/24/25 23:20 IMPRESSION: NO ACUTE FINDINGS. Cervical Spine MRI 02/28/25 12:05 IMPRESSION: Extensive dorsal decompression and articular screw fusion with prior anterior fusion at C3-4. Normal spinal cord without recurrent central stenosis. Negative for discitis or osteomyelitis. Patient refused contrast. [facility] Lumbar Spine MRI 02/28/25 12:05 IMPRESSION: Multilevel right-sided neural foraminal stenosis. Please correlate clinically. Most severe at L5-S1. [facility] Thoracic Spine MRI 02/28/25 12:05 IMPRESSION: Disc space narrowing and multilevel thoracic degenerative annular bulging. Broad-based protrusion seen in the upper lumbar spine not completely imaged currently. Prior upper thoracic fusion. Lumbar Spine MRI 03/01/25 14:02 IMPRESSION: Unremarkable post-contrast images of the thoracic and lumbar spine without evidence of osteomyelitis discitis or acute process. Multilevel degenerate changes of the lumbar spine. Thoracic Spine MRI 03/01/25 14:02 IMPRESSION: Unremarkable post-contrast images of the thoracic and lumbar spine without evidence of osteomyelitis discitis or acute process. Multilevel degenerate changes of the lumbar spine. Reading Location: [facility] Medications at Discharge Home Medications melatonin 5 mg capsule 5 mg PO QHS PRN sleep 02/24/25 baclofen 10 mg tablet 10 mg PO BID 02/25/25 cyclobenzaprine 10 mg tablet 10 mg PO TID PRN PRN muscle spasm 02/25/25 duloxetine 30 mg capsule,delayed release 30 mg PO BID 02/25/25 gabapentin 300 mg capsule 300 mg PO DAILY 02/25/25 mirtazapine 7.5 mg tablet 7.5 mg PO QHS 02/25/25 trazodone 100 mg tablet 100 mg PO QHS 02/25/25 nitrofurantoin monohydrate/macrocrystals 100 mg capsule 100 mg PO BID 4 days #0 caps 03/02/25 oxycodone 5 mg tablet 2.5 - 5 mg (0.5 - 1 x 5 mg) PO Q4H PRN PRN Pain Score 4-10 Or Pre Pt/Ot 3 days #7 tabs 03/02/25 sennosides 8.6 mg-docusate sodium 50 mg tablet (Stimulant Laxative Plus) 2 tab PO BID #0 tabs 03/02/25 thiamine 500 mg/100 mL in 0.9 % sodium chloride intravenous solution 250 mg (50 mL) IV DAILY 5 days 03/02/25 thiamine HCl (vitamin B1) 100 mg tablet 100 mg PO DAILY 1 month #30 tabs 03/02/25 thiamine HCl (vitamin B1) 100 mg/mL injection solution 500 mg (5 mL) IV Q8 #2 mL 03/02/25 Physical Exam Narrative Please see progress note on the same day Medical Records Data Medical Nutrition Assessment Dietitian: Malnutrition Criteria Met Start: 02/25/25 16:22 Freq: Status: Active Protocol: Document 02/25/25 16:26 RMA (Rec: 02/25/25 16:26 RMA [id number]) Nutrition Malnutrition Evidence of Yes Malnutrition Exists Malnutrition (severe Chronic ): Evidenced By Suboptimal Energy Intake (Severe),Weight Loss (Severe) Clinical Problem Chronic Disease or Condition Related Malnutrition Etiology Severe protein-calorie malnutrition in the context of chronic disease and debility related to inadequate oral intake~ Signs/Symptoms as evidenced by PO meeting less than 50-75% estimated nutrition needs x 3-6 months and unintentional weight loss ~14% x past 3-6 months Status Active Problem Recommendation Dietitian Will liberalize diet to Regular given signs/symptoms of Recommendations/ malnutrition. Changes Will add 240mL ensure plus HP with breakfast. Will add magic cup dessert with lunch and dinner tray. Trend weight closely and adjust ONS to optimize oral intake. Weight / BMI Weight Weight: 167 lb 12.348 oz Body Mass Index (BMI) 27.1 ABG / Lab / Microbiology Data 03/02/25 06:48 03/02/25 06:48 Laboratory: Laboratory Results - last 24 hr 03/01/25 06:00: Urine Color Yellow, Urine Clarity Clear, Urine pH 6.0, Ur Specific [place] 1.010, Urine Protein Negative, Urine Glucose (UA) Normal, Urine Ketones Negative, Urine Occult Blood 25 H, Urine Nitrite Negative, Urine Bilirubin Negative, Urine Urobilinogen Normal, Ur Leukocyte Esterase 500 H, Urine RBC 5-10 SEEN, Urine WBC 10-25 SEEN, Ur Squamous Epith Cells 0 SEEN, Urine Bacteria 2+, Urine Mucus 0 SEEN 03/02/25 06:48: WBC 5.4, RBC 3.33 L, Hgb 10.3 L, Hct 32.2 L, MCV 96.7, MCH 30.9, MCHC 32.0, RDW Std Deviation 49.1 H, RDW Coeff of Dat 13.9, Plt Count 251, MPV 9.7, Immature Gran % (Auto) 0.200, Neut % (Auto) 52.5, Lymph % (Auto) 30.9, [place] % (Auto) 9.3, Eos % (Auto) 6.5 H, Baso % (Auto) 0.6, Absolute Neuts (auto) 2.8, Absolute Lymphs (auto) 1.67, Nucleated RBC % 0, Sodium 140, Potassium 4.3, Chloride 107, Carbon Dioxide 24.4, Anion Gap 9, BUN 23 H, Creatinine 1.13, Estim Creat Clear Calc 41.38 L, Est GFR (MDRD) Non-Af 49 L, BUN/Creatinine Ratio 20.7 H, Glucose 101 H, Calcium 9.0 Microbiology: Microbiology 02/24/25 22:30 Mucosa - Nose SARS-CoV-2, Influenza & RSV (PCR) - Final Radiography Diagnostic Testing: Radiology Impression Lumbar Spine MRI 03/01/25 14:02 IMPRESSION: Unremarkable post-contrast images of the thoracic and lumbar spine without evidence of osteomyelitis discitis or acute process. Multilevel degenerate changes of the lumbar spine. Reading Location: [facility] Thoracic Spine MRI 03/01/25 14:02 IMPRESSION: Unremarkable post-contrast images of the thoracic and lumbar spine without evidence of osteomyelitis discitis or acute process. Multilevel degenerate changes of the lumbar spine. Reading Location: [facility] D/C Instructions DC O2, CPAP, BIPAP Needs Home O2 Discharge instructions: No Meaningful Use Info Meaningful Use Meaningful Use Diagnoses (Choose all that apply): None applicable Discharge Plan Admission Admit Date/Time: 02/25/25 01:10 Primary Reason for Your Visit: chr B/L leg weakness, severe bilateral neural foraminal stenosis L5-S1 Attending Provider: Yong Roach Primary Care Provider: EBENEZER CALLEJAS Consulting Providers: Ingrdi Muniz; Vasile Willson; Jimenez Painter; Kathi Haley; Venita Soliz; Kelly Jacobsen; Dalia Gordon; Choco Moreira; Catie Dillon; Edwardo Reyna; Kurt Madsen; Julius Fuentes; Ana Gonzalez; Maria Ines Rae; Mendoza Berman; Ronda Santacruz; Negra Cantu; Cordell Augustine; Ozzie Terry; Rafa Ramos; Eris Plaza; Laine Adams; Johanna Walker; Vasile Mehta Discharge Orders/Prescriptions Prescriptions: New nitrofurantoin monohyd/m-cryst 100 mg Capsule 100 mg PO BID 4 Days Qty: 0 0RF oxycodone 5 mg Tablet 2.5 - 5 mg PO Q4H PRN PRN (Reason: Pain Score 4-10 Or Pre Pt/Ot) 3 Days Qty: 7 0RF sennosides-docusate sodium [Stimulant Laxative Plus] 8.6-50 mg Tablet 2 tab PO BID Qty: 0 0RF thiamine HCl (vitamin B1) 100 mg/mL Solution 500 mg IV Q8 Qty: 2 0RF Rx Instructions: Last dose and send 03/03/2025 at 6:32 AM thiamine in 0.9 % sod chloride 500 mg/100 mL solution 250 mg IV DAILY 5 Days Rx Instructions: starting on 03/04/25 till 03/08/25 thiamine HCl (vitamin B1) 100 mg tablet 100 mg PO DAILY 30 Days Qty: 30 2RF Rx Instructions: starting 03/09/25 Continued melatonin 5 mg capsule 5 mg PO QHS PRN (Reason: sleep) baclofen 10 mg tablet 10 mg PO BID gabapentin 300 mg capsule 300 mg PO DAILY mirtazapine 7.5 mg tablet 7.5 mg PO QHS duloxetine 30 mg capsule,delayed release(DR/EC) 30 mg PO BID cyclobenzaprine 10 mg tablet 10 mg PO TID PRN PRN (Reason: muscle spasm) trazodone 100 mg tablet 100 mg PO QHS Referrals / Follow Up: EBENEZER CALLEJAS [Other] Cristian Torrez MD [Med Staff - Active Staff, Orthopedics] - Within 1 Month Vasile Mehta MD [Med Staff - Active Staff, Pain Management] - Within 1 Week Caleb Alston MD [Non-Staff -Ordering Privileges, Neurology] - Within 2 Weeks Disposition Disposition (needs filled in before D/C Order can be placed): Assisted Facility Charges/Coding Visit Charges Inpatient E&M: 13796 Disch Hosp >30min
--- NOTE | 2025-03-02 15:05 | PHA.DC.MR.R ---
Pharmacy [place] Med Reconciliation Pharmacy Service has performed discharge medication reconciliation for this patient. The patient's discharge medication list was reviewed for discrepancies and discrepancies were resolved. Medications at Discharge Home Medications melatonin 5 mg capsule 5 mg PO QHS PRN sleep 02/24/25 baclofen 10 mg tablet 10 mg PO BID 02/25/25 cyclobenzaprine 10 mg tablet 10 mg PO TID PRN PRN muscle spasm 02/25/25 duloxetine 30 mg capsule,delayed release 30 mg PO BID 02/25/25 gabapentin 300 mg capsule 300 mg PO DAILY 02/25/25 mirtazapine 7.5 mg tablet 7.5 mg PO QHS 02/25/25 trazodone 100 mg tablet 100 mg PO QHS 02/25/25 nitrofurantoin monohydrate/macrocrystals 100 mg capsule 100 mg PO BID 4 days #0 caps 03/02/25 oxycodone 5 mg tablet 2.5 - 5 mg (0.5 - 1 x 5 mg) PO Q4H PRN PRN Pain Score 4-10 Or Pre Pt/Ot 3 days #7 tabs 03/02/25 sennosides 8.6 mg-docusate sodium 50 mg tablet (Stimulant Laxative Plus) 2 tab PO BID #0 tabs 03/02/25 thiamine 500 mg/100 mL in 0.9 % sodium chloride intravenous solution 250 mg (50 mL) IV DAILY 5 days 03/02/25 thiamine HCl (vitamin B1) 100 mg tablet 100 mg PO DAILY 1 month #30 tabs 03/02/25 thiamine HCl (vitamin B1) 100 mg/mL injection solution 500 mg (5 mL) IV Q8 #2 mL 03/02/25
--- NOTE | 2025-03-02 17:23 | NURSING ---
1700-ATTEMPTED TO CALL REPORT TO TCU, TOLD THEY WOULD CALL BACK
--- NOTE | 2025-03-02 17:38 | NURSING ---
REPORT CALLED TO TCU. PT WILL GO TO ROOM 4
[2025-03-04 17:08] LABS: Vitamin B1, Thiamine 88.2 nmol/L (66.5-200.0)
[2025-03-05 03:07] LABS: Copper, Serum or Plasma 117 ug/dL (80-158)
== END 2025-03-02 18:16 | disposition skilled nursing facility (03) ==
LOC: ED 02-25 01:14 → MS3 02-25 01:46
PROVIDERS: Family Medicine; Admitting Provider Family Medicine; Emergency Provider Student in an Organized Health Care Education/Training Program; Visit Provider Internal Medicine
DX: G20.A1 Parkinson's disease without dyskinesia, without mention of fluctuations (principal); N18.31 Chronic kidney disease, stage 3a; R53.1 Weakness; R53.81 Other malaise; G62.9 Polyneuropathy, unspecified; I12.9 Hypertensive chronic kidney disease with stage 1 through stage 4 chronic kidney disease, or unspecified chronic kidney disease; R62.7 Adult failure to thrive; R26.9 Unspecified abnormalities of gait and mobility; F41.9 Anxiety disorder, unspecified; F32.A Depression, unspecified; F39 Unspecified mood [affective] disorder; G25.81 Restless legs syndrome; Z66 Do not resuscitate; I44.0 Atrioventricular block, first degree; R94.31 Abnormal electrocardiogram [ECG] [EKG]; Z79.899 Other long term (current) drug therapy; R30.0 Dysuria; R35.0 Frequency of micturition; R49.0 Dysphonia
CPT/HCPCS: 36415; 51702; 71046; 72141; 72146; 72147; 72148; 72149; 80048; 80053; 81001; 82525; 82607; 82746; 83735; 84100; 84425; 85025; 87077; 87086; 87088; 87186; 87631; 92507; 92523; 92524; 93005; 94668; 96361; 96365; 96366; 96372; 97162; 97165; 97530; 97535; 97802; 99221; 99285; A9575; A4216; G0378